=== PATIENT | male | born 1940 | race Caucasian/White ===

== ENCOUNTER 2017-07-18 12:38 | Inpatient (IN) | payer MEDICARE, MEDICAID ==
[2017-07-18] MEDS ORDERED: Sodium Chloride 0.9% 10 ML Syringe FLUSH PRN (12:54)
[2017-07-18] MEDS ORDERED: Sodium Chloride 0.9% 2.5 ML Syringe FLUSH PRN (12:54)
[2017-07-18] MEDS ORDERED: Sodium Chloride 0.9% 1,000 ML IV ONE (13:06)
[2017-07-18] MEDS ORDERED: Acetaminophen 500 MG Tab PO ONE (13:06)
[2017-07-18] MEDS ORDERED: Albuterol/Ipratropium 3.0-0.5 MG/3 ML Neb Soln NEB ONE (13:11)
--- NOTE | 2017-07-18 13:11 | EDM.PDOC ---
ED HPI GENERAL MEDICAL PROBLEM - General Chief Complaint: Respiratory Problem Stated Complaint: POSSIBLE PNEUMONIA Time Seen by Provider: 07/18/17 12:50 - History of Present Illness INITIAL COMMENTS - FREE TEXT/NARRATIVE: HISTORY AND PHYSICAL: History of present illness: The patient is a 77-year-old male who lives at a assisted and has a history of scoliosis hypertension chronic blepharitis dermatitis and presents with caregiver after he had decrease activity for shortness of breath and coughing while he was at work today. According to the caregiver he has had a harsh cough for the last several days and they did not document a fever and he has not had vomiting or diarrhea. He has had a runny nose but he has not complained of chest pain or shortness of breath. Today they bring him because he seemed to have a lower level of activity than usual and the nurse at the assisted assessed him and thought that he sounded like he might have pneumonia and he is here for evaluation. The patient offers little history here and seems more sleepy than the caregiver says is usual for him but she says he does sleep a lot in general. His initial O2 sat on arrival was 86-88% on room air and his temp was 102.1. He has not received any medication for this temperature as the assisted was unaware of it. He denies any abdominal pain and he says that occasionally when he coughs there will be some phlegm but not a large amount of it. He denies any other complaints to me on my evaluation. The patient did get his influenza shot this year. According to the report he does not have any pulmonary disease history Review of systems: As per history of present illness and below otherwise all systems reviewed and negative. Past medical history: As per history of present illness and as reviewed below otherwise noncontributory. Surgical history: As per history of present illness and as reviewed below otherwise noncontributory. Social history: No reported history of drug or alcohol abuse. Family history: As per history of present illness and as reviewed below otherwise noncontributory. Physical exam: General: Well-developed well-nourished man who is nontoxic and is arousable and interactive with my exam and is able to perform commands but is very quiet and prefers to keep his eyes closed in between evaluation. His temp is 102.1 and his O2 sat on room air was 86-88%. On oxygen he comes up to the low 90s. HEENT: Atraumatic, normocephalic, pupils reactive, negative for conjunctival pallor or scleral icterus, mucous membranes moist, throat clear, neck supple, nontender, trachea midline. Lungs: Coarse breath sounds bilaterally with occasional wheeze more at the right base, there is no accessory muscle use or work of breathing noted, breath sounds equal bilaterally, chest nontender. Patient does has a harsh cough which was heard by us in the ED Heart: S1S2, regular, negative for clicks, rubs, or JVD. Abdomen: Soft, nondistended, nontender. There is no rebound or guarding but there is some tympany on percussion of the upper abdomen Negative for masses or hepatosplenomegaly. Negative for costovertebral tenderness. Pelvis: Stable nontender. Genitourinary: Deferred. Rectal: Deferred. Extremities: Atraumatic, negative for cords or calf pain. Neurovascular unremarkable. No leg asymmetry or pedal edema Neuro: Awake, alert, oriented. Cranial nerves II through XII unremarkable. Cerebellum unremarkable. Motor and sensory unremarkable throughout. Exam nonfocal. Diagnostics: EKG chest x-ray CBC CMP influenza lactic acid UA urine culture blood cultures 2 Therapeutics: IV O2 monitor IV fluids duo neb Tylenol Tamiflu Rocephin Patient is going to x-ray and is much more awake and looking around and interactive. We'll continue to monitor her status and his testing results 1427--case was discussed with our hospitalist Dr. Arias who wants Tamiflu and Rocephin to be given an inpatient admission. At this point the patient has not given a urine sample so will have to be collected from the floor. Impression: Influenza A + with hypoxia and bibasilar infiltrates versus atelectasis Definitive disposition and diagnosis as appropriate pending reevaluation and review of above. - Related Data Allergies Allergy/AdvReac Type Severity Reaction Status Date / Time carbamazepine [From Tegretol] Allergy Rash Verified 07/18/17 13:01 ED ROS GENERAL - Review of Systems Review Of Systems: ROS reveals no pertinent complaints other than HPI. ED EXAM, GENERAL - Physical Exam Exam: See Below (See dictation) Course - Vital Signs Last Recorded V/S: Last Vital Signs Temp 38.2 C H 07/18/17 14:11 Pulse 95 07/18/17 14:11 Resp 22 H 07/18/17 14:11 BP 148/76 H 07/18/17 14:11 Pulse Ox 95 07/18/17 14:11 - Orders/Labs/Meds Orders: Active Orders 24 hr Category Date Time Status Cardiac Monitoring [RC] . DIRECTED Care 07/18/17 12:54 Active EKG Documentation Completion [RC] STAT Care 07/18/17 12:54 Active Oxygen Therapy, ED [RC] ASDIRECTED Care 07/18/17 12:54 Active Pulse Oximetry [RC] ASDIRECTED Care 07/18/17 12:54 Active RT Aerosol Therapy [RC] ASDIRECTED Care 07/18/17 13:11 Active CULTURE BLOOD [BC] Stat Lab 07/18/17 13:17 Received CULTURE BLOOD [BC] Stat Lab 07/18/17 13:45 Received CULTURE URINE [RM] Stat Lab 07/18/17 13:07 Uncollected UA W/MICROSCOPIC [URIN] Stat Lab 07/18/17 13:07 Uncollected Oseltamivir [Tamiflu] Med 07/18/17 14:28 Once 75 mg PO ONETIME ONE Sodium Chloride 0.9% [Saline Flush] Med 07/18/17 12:54 Active 10 ml FLUSH ASDIRECTED PRN Sodium Chloride 0.9% [Saline Flush] Med 07/18/17 12:54 Active 2.5 ml FLUSH ASDIRECTED PRN cefTRIAXone [Rocephin in Dextrose,Iso-Osm 1 GM/50 ML] 1 Med 07/18/17 14:28 Ordered gm Premix Bag 1 bag IV ONETIME Blood Culture x2 Reflex Set [OM.PC] Stat Oth 07/18/17 13:07 Ordered Saline Lock Insert [OM.PC] Stat Oth 07/18/17 12:54 Ordered Medication Orders Sodium Chloride (Saline Flush) 10 ml FLUSH ASDIRECTED PRN PRN Reason: Keep Vein Open Last Admin: 07/18/17 14:10 Dose: 10 ml Sodium Chloride (Saline Flush) 2.5 ml FLUSH ASDIRECTED PRN PRN Reason: Keep Vein Open Last Admin: 07/18/17 14:10 Dose: 2.5 ml Labs: Laboratory Tests 07/18/17 07/18/17 07/18/17 Range/Units 13:17 13:17 13:17 WBC 10.05 (4.0-11.0) K/uL RBC 4.85 (4.50-5.90) M/uL Hgb 14.8 (13.0-17.0) g/dL Hct 43.5 (38.0-50.0) % MCV 89.7 (80.0-98.0) fL MCH 30.5 (27.0-32.0) pg MCHC 34.0 (31.0-37.0) g/dL RDW Std Deviation 43.3 (28.0-62.0) fl RDW Coeff of Kimberly 13 (11.0-15.0) % Plt Count 205 (150-400) K/uL MPV 9.60 (7.40-12.00) fL Neut % (Auto) 86.1 H (48.0-80.0) % Lymph % (Auto) 5.8 L (16.0-40.0) % [place] % (Auto) 8.0 (0.0-15.0) % Eos % (Auto) 0.0 (0.0-7.0) % Baso % (Auto) 0.1 (0.0-1.5) % Neut # (Auto) 8.7 H (1.4-5.7) K/uL Lymph # (Auto) 0.6 (0.6-2.4) K/uL [place] # (Auto) 0.8 (0.0-0.8) K/uL Eos # (Auto) 0.0 (0.0-0.7) K/uL Baso # (Auto) 0.0 (0.0-0.1) K/uL Nucleated RBC % 0.0 /100WBC Nucleated RBCs # 0 K/uL Lactate 2.7 H (0.20-2.00) mmol/L Sodium 138 (136-146) mmol/L Potassium 3.3 L (3.5-5.1) mmol/L Chloride 100 (98-110) mmol/L Carbon Dioxide 25 (21-31) mmol/L BUN 25 H (6.0-23.0) mg/dL Creatinine 1.0 (0.6-1.5) mg/dL Est Cr Clr Drug Dosing 59.67 mL/min Estimated GFR (MDRD) > 60.0 ml/min Glucose 262 H (60-110) mg/dL Calcium 9.1 (8.8-10.8) mg/dL Total Bilirubin 2.8 H (0.1-1.5) mg/dL AST 48 H (5-40) IU/L ALT 31 (8-54) IU/L Alkaline Phosphatase 71 (40-150) Total Protein 7.2 (6.0-8.0) g/dL Albumin 4.1 (3.4-4.8) g/dL Globulin 3.1 (2.0-3.5) g/dL Albumin/Globulin Ratio 1.3 (1.3-2.8) Meds: Medications Generic Name Dose Route Start Last Admin Trade Name Freq PRN Reason Stop Dose Admin Sodium Chloride 10 ml 07/18/17 12:54 07/18/17 14:10 Saline Flush FLUSH 10 ml ASDIRECTED PRN Administration Keep Vein Open Sodium Chloride 2.5 ml 07/18/17 12:54 07/18/17 14:10 Saline Flush FLUSH 2.5 ml ASDIRECTED PRN Administration Keep Vein Open Discontinued Medications Generic Name Dose Route Start Last Admin Trade Name Freq PRN Reason Stop Dose Admin Acetaminophen 1,000 mg 07/18/17 13:06 07/18/17 13:24 Tylenol Extra Strength PO 07/18/17 13:07 1,000 mg ONETIME ONE Administration Albuterol/Ipratropium 3 ml 07/18/17 13:11 07/18/17 13:28 Duoneb 3.0-0.5 Mg/3 Ml NEB 07/18/17 13:12 3 ml ONETIME ONE Administration Sodium Chloride 1,000 mls @ 999 mls/hr 07/18/17 13:06 07/18/17 14:06 Normal Saline IV 07/18/17 14:06 999 mls/hr STAT ONE Administration Departure - Departure Time of Disposition: 14:30 Disposition: Admitted As Inpatient 68 Condition: Good Clinical Impression: Influenza A, Hypoxia Pneumonia Qualifiers: Pneumonia type: due to unspecified organism Laterality: bilateral Lung location : lower lobe of lung Qualified Code(s): J18.9 - Pneumonia, unspecified organism - Discharge Information Referrals: Chai Villalta MD [Primary Care Provider] - Forms: ED Department Discharge - My Orders Last 24 Hours: My Active Orders 07/18/17 12:54 Cardiac Monitoring [RC] . DIRECTED EKG Documentation Completion [RC] STAT Oxygen Therapy, ED [RC] ASDIRECTED Pulse Oximetry [RC] ASDIRECTED Sodium Chloride 0.9% [Saline Flush] 10 ml FLUSH ASDIRECTED PRN Sodium Chloride 0.9% [Saline Flush] 2.5 ml FLUSH ASDIRECTED PRN Saline Lock Insert [OM.PC] Stat 07/18/17 13:07 CULTURE URINE [RM] Stat UA W/MICROSCOPIC [URIN] Stat Blood Culture x2 Reflex Set [OM.PC] Stat 07/18/17 13:11 RT Aerosol Therapy [RC] ASDIRECTED 07/18/17 13:17 CULTURE BLOOD [BC] Stat 07/18/17 13:45 CULTURE BLOOD [BC] Stat 07/18/17 14:28 Oseltamivir [Tamiflu] 75 mg PO ONETIME ONE cefTRIAXone [Rocephin in Dextrose,Iso-Osm 1 GM/50 ML] 1 gm Premix Bag 1 bag IV ONETIME - Assessment/Plan Last 24 Hours: My Active Orders 07/18/17 12:54 Cardiac Monitoring [RC] . DIRECTED EKG Documentation Completion [RC] STAT Oxygen Therapy, ED [RC] ASDIRECTED Pulse Oximetry [RC] ASDIRECTED Sodium Chloride 0.9% [Saline Flush] 10 ml FLUSH ASDIRECTED PRN Sodium Chloride 0.9% [Saline Flush] 2.5 ml FLUSH ASDIRECTED PRN Saline Lock Insert [OM.PC] Stat 07/18/17 13:07 CULTURE URINE [RM] Stat UA W/MICROSCOPIC [URIN] Stat Blood Culture x2 Reflex Set [OM.PC] Stat 07/18/17 13:11 RT Aerosol Therapy [RC] ASDIRECTED 07/18/17 13:17 CULTURE BLOOD [BC] Stat 07/18/17 13:45 CULTURE BLOOD [BC] Stat 07/18/17 14:28 Oseltamivir [Tamiflu] 75 mg PO ONETIME ONE cefTRIAXone [Rocephin in Dextrose,Iso-Osm 1 GM/50 ML] 1 gm Premix Bag 1 bag IV ONETIME
[2017-07-18 13:53] LABS: CHLORIDE,CL 100 mmol/L (98-110); SODIUM,NA 138 mmol/L (136-146)
--- NOTE | 2017-07-18 14:22 | CR ---
EXAMINATION: Two-view chest (PA and Lateral views). HISTORY: Shortness of breath. FINDINGS: The trachea is midline. The cardiomediastinal silhouette is within normal limits. Mild bibasilar atel ectasis and/or infiltrate. No pleural effusion or pneumothorax. Osseous structures appear unremarkable. IMPRESSION: 1. Mild bibasilar atelectasis and/or infiltrates, accentuated by low lung volumes.
[2017-07-18] MEDS ORDERED: Oseltamivir 75 MG Cap PO ONE (14:28)
[2017-07-18] MEDS ORDERED: cefTRIAXone 1 GM in Premix Bag 1 BAG IV ONE (14:28)
[2017-07-18] MEDS ORDERED: ALPRAZolam 0.5 MG Tab PO ONE (14:47)
[2017-07-18] MEDS ORDERED: Albuterol 0.083% 2.5 MG/3 ML Neb Soln NEB PRN (15:23)
[2017-07-18] MEDS ORDERED: Acetaminophen 325 MG Tab PO PRN (15:23)
[2017-07-18] MEDS ORDERED: Ondansetron 4 MG/2 ML SDV IVPUSH PRN (15:23)
--- NOTE | 2017-07-18 15:28 | PCM.HP ---
H&P History of Present Illness - General Date of Service: 07/18/17 Admit Problem/Dx: Admission Diagnosis/Problem Admission Diagnosis/Problem Hypoxia, CAP, Influenza A positive Source of Information: Family, Other (Detention records) History Limitations: Reports: No Limitations - History of Present Illness Initial Comments - Free Text/Narative: This 77 year old male with pmh of HTN and who lives in a senior care presented to the ED with his caregiver after they noticed today he wsa more sleepy and not acting himself. No fever was noted at home, but a nurse at the senior care did listen to his lungs and felt he should be evaluated for possible pneumonia. The caregiver with him no reports he was barely able to get out of the car, which is not normal for him. He is usually very talkative and active. She denies him being sick even yesterday, or that they didn't notice anything different until today. Timothy is resting in bed, mumbles when attempting to talk, so unable to obtain ROS or HPI. I did speak with Timothy's Guardian and POA his brother Dr Dick Busby. He reports he would like to be updated daily on his condition. He also reports Timothy is a FULL CODE. In the ED, No leukocytosis noted. WBC 10,000, lactate was elevate 2.7, K+ 3.3, BUN 25, Cr 1.0 Bili 2.8, AST 48 ALT 31 Alk phose 71. He was noted to be hypoxic on arrival to ED, 86% on RA. He was placed on 3 L NC, sating 95%. HR 70-90s, No hypotension. Febrile with temps of 102 on arrival to ED. CXR revealed bibasilar infiltrates. He was swabbed for influenza, which return positive for Influenza A. EKG SR with LAD. NO ST segment changes. He will be admitted for sepsis, hypoxia, CAP and influenza A. PCP, Dr Chai Villalta - Related Data Allergies/Adverse Reactions: Allergies Allergy/AdvReac Type Severity Reaction Status Date / Time carbamazepine [From Tegretol] Allergy Rash Verified 07/18/17 13:01 Home Medications: Home Meds ALPRAZolam [Xanax] 0.5 mg PO TID 07/18/17 [History] Cetirizine [ZyrTEC] 10 mg PO DAILY 07/18/17 [History] Doxazosin [Cardura] 4 mg PO BEDTIME 07/18/17 [History] Triamterene/Hydrochlorothiazid [Dyazide 37.5-25] 1 tab PO DAILY 07/18/17 [ History] Past Medical History Cardiovascular History: Reports: Hypertension. Denies: Heart Failure Respiratory History: Reports: None. Denies: COPD Musculoskeletal History: Reports: Other (See Below) Other Musculoskeletal History: shoulder dislocation Psychiatric History: Reports: Developmental Delay - Infectious Disease History Other Infectious Disease History: unknown Social & Family History - Family History Family Medical History: Noncontributory - Tobacco Use Smoking Status *Q: Never Smoker - Recreational Drug Use Recreational Drug Use: No - Living Situation & Occupation Living situation: Reports: Other (Detention) H&P Review of Systems - Review of Systems: Review Of Systems: Unable To Obtain Exam - Exam Exam: See Below - Vital Signs Vital Signs: Last Vital Signs Temp 101.2 F H 07/18/17 14:51 Pulse 79 07/18/17 14:51 Resp 18 07/18/17 14:51 BP 129/76 07/18/17 14:51 Pulse Ox 95 07/18/17 14:51 Weight: 104.326 kg - Exam Quality Assessment: Supplemental Oxygen General: Alert, Cooperative, Obtunded, Other (flushed in the cheeks, mumbles when trying to speak, but cooperative, easily falls back to sleep). No: Oriented HEENT: Conjunctiva Clear, Mucosa Moist & [place], Pupils Reactive Neck: Supple Lungs: Crackles (bibasilar.). No: Wheezing Cardiovascular: Regular Rate, Regular Rhythm, Normal S1, Normal S2 GI/Abdominal Exam: Normal Bowel Sounds, Soft, Non-Tender, No Organomegaly, No Distention, No Abnormal Bruit, No Mass, Pelvis Stable Back Exam: Normal Inspection, Full Range of Motion, NT Extremities: Normal Inspection, Normal Range of Motion, Non-Tender, No Pedal Edema, Normal Capillary Refill Neuro Extensive - Mental Status: Alert. No: Oriented x3, Normal Mood/Affect, Normal Cognition Psychiatric: Alert - Patient Data Result Diagrams: 07/18/17 13:17 07/18/17 13:17 EKG INTERPRETATION EKG Date: 07/18/17 Rhythm: NSR Rate (Beats/Min): 93 [place]: LAD-Left [place] Deviation P-Wave: Present QRS: Normal ST-T: Normal QT: Normal *Q Meaningful Use (ADM) - VTE *Q VTE Criteria *Q: - Stroke *Q Stroke Criteria *Q: - AMI *Q AMI Criteria *Q: - Problem List (1) Sepsis SNOMED Code(s): 64475848 ICD Code: A41.9 - SEPSIS, UNSPECIFIED ORGANISM Status: Acute Current Visit: Yes (2) Hypoxia SNOMED Code(s): 024599986 ICD Code: R09.02 - HYPOXEMIA Status: Acute Current Visit: Yes (3) Influenza A SNOMED Code(s): 500470738 ICD Code: J10.1 - FLU DUE TO OTH IDENT INFLUENZA VIRUS W OTH RESP MANIFEST Status: Acute Current Visit: Yes (4) Pneumonia SNOMED Code(s): 598764725 ICD Code: J18.9 - PNEUMONIA, UNSPECIFIED ORGANISM Status: Acute Current Visit: Yes Qualifiers: Pneumonia type: due to unspecified organism Laterality: bilateral Lung location: lower lobe of lung Qualified Code(s): J18.9 - Pneumonia, unspecified organism (5) HTN (hypertension) SNOMED Code(s): 09889028 ICD Code: I10 - ESSENTIAL (PRIMARY) HYPERTENSION Status: Chronic Current Visit: Yes Qualifiers: Hypertension type: essential hypertension Qualified Code(s): I10 - Essential (primary) hypertension (6) Developmental delay, moderate SNOMED Code(s): 208478885 ICD Code: R62.50 - UNSP LACK OF EXPECTED NORMAL PHYSIOL DEV IN CHILDHOOD Status: Chronic Current Visit: Yes Problem List Initiated/Reviewed/Updated: Yes Orders Last 24hrs: Active Orders 24 hr Category Date Time Status Communication Order [RC] PRN Care 07/18/17 15:27 Ordered Height and Weight [RC] DAILY Care 07/18/17 15:23 Ordered Intake and Output [RC] QSHIFT Care 07/18/17 15:23 Ordered Oxygen Therapy [RC] PRN Care 07/18/17 15:23 Ordered RT Aerosol Therapy [RC] ASDIRECTED Care 07/18/17 15:26 Ordered Up With Assistance [RC] ASDIRECTED Care 07/18/17 15:23 Ordered VTE/DVT Education [RC] PER UNIT ROUTINE Care 07/18/17 15:23 Ordered Vital Signs [RC] Q4H Care 07/18/17 15:23 Ordered Heart Healthy Diet [DIET] Diet 07/18/17 Dinner Ordered CBC WITH AUTO DIFF [HEME] AM Lab 07/19/17 05:11 Ordered CBC WITH AUTO DIFF [HEME] AM Lab 07/20/17 05:11 Ordered CBC WITH AUTO DIFF [HEME] AM Lab 07/21/17 05:11 Ordered COMPREHENSIVE METABOLIC PN,CMP [CHEM] AM Lab 07/19/17 05:11 Ordered COMPREHENSIVE METABOLIC PN,CMP [CHEM] AM Lab 07/20/17 05:11 Ordered COMPREHENSIVE METABOLIC PN,CMP [CHEM] AM Lab 07/21/17 05:11 Ordered CULTURE SPUTUM + SMEAR [RM] Stat Lab 07/18/17 15:23 Uncollected LACTIC ACID,WHOLE BLOOD [BG] Q5H Lab 07/18/17 17:15 Ordered LACTIC ACID,WHOLE BLOOD [BG] Q5H Lab 07/18/17 22:15 Ordered LACTIC ACID,WHOLE BLOOD [BG] Q5H Lab 07/19/17 03:15 Ordered UA W/MICROSCOPIC [URIN] Stat Lab 07/18/17 15:23 Uncollected Acetaminophen [Tylenol] Med 07/18/17 15:23 Ordered 650 mg PO Q4H PRN Albuterol [Proventil Neb Soln] Med 07/18/17 15:23 Ordered 2.5 mg NEB Q2H PRN Albuterol/Ipratropium [DuoNeb 3.0-0.5 MG/3 ML] Med 07/18/17 18:00 Ordered 3 ml NEB Q4HRRT Azithromycin [Zithromax] Med 07/18/17 15:30 Ordered 500 mg PO Q24H Enoxaparin [Lovenox] Med 07/18/17 15:30 Ordered 30 mg SUBCUT DAILY Ondansetron [Zofran] Med 07/18/17 15:23 Ordered 4 mg IVPUSH Q4H PRN Oseltamivir [Tamiflu] Med 07/18/17 21:00 Ordered 75 mg PO BID Sodium Chloride 0.9% @ 125 MLS/HR (1,000ml) Med 07/18/17 15:30 Ordered Sodium Chloride 0.9% [Normal Saline] 1,000 ml IV ASDIRECTED cefTRIAXone [Rocephin in Dextrose,Iso-Osm 1 GM/50 ML] 1 Med 07/19/17 14:00 Ordered gm Premix Bag 1 bag IV Q24H Medication Orders Acetaminophen (Tylenol) 650 mg PO Q4H PRN PRN Reason: Pain (Mild 1-3)/fever Albuterol (Proventil Neb Soln) 2.5 mg NEB Q2H PRN PRN Reason: Shortness Of Breath/wheezing Azithromycin (Zithromax) 500 mg PO Q24H AURELIA Ceftriaxone Sodium/Dextrose 1 (gm/ Premix) 50 mls @ 100 mls/hr IV Q24H AURELIA Sodium Chloride (Normal Saline) 1,000 mls @ 125 mls/hr IV ASDIRECTED AURELIA Oseltamivir Phosphate (Tamiflu) 75 mg PO BID AURELIA Sodium Chloride (Saline Flush) 10 ml FLUSH ASDIRECTED PRN PRN Reason: Keep Vein Open Last Admin: 07/18/17 14:10 Dose: 10 ml Sodium Chloride (Saline Flush) 2.5 ml FLUSH ASDIRECTED PRN PRN Reason: Keep Vein Open Last Admin: 07/18/17 14:10 Dose: 2.5 ml Assessment/Plan Comment:: This 77 year old male admitted with sepsis secondary to Influenza A and bibasilar pneumonia, and hypoxia 1. Sepsis: Given 1 L bolus in ED, will continue to monitor Lactate until normalized. HR decreased to 70s from 90s after bolus. BC pending as well as UA and sputum. Repeat CBC/CMP in am. Tylenol available for fevers PRN. 2. Pneumonia: CAP, treated with Azithromycin and Rocephin. BC pending, will attempt to obtain sputum culture. 3. Influenza A positive: Received vaccine this year. No sick contacts. Tamiflu 75 mg BID. 4. Hypoxia: Likely secondary to pneumonia and influenza, Oxygen therapy to keep sats > 90%. Wean as possible. 5. HTN: Stable. Hold antihypertensives acutely due to illness and sepsis. 6. Agitation/developmental delay: Takes Xanax scheduled TID, will changed to PRN due to some AMS from acute illness. Monitor. VTE prophylaxis: Lovenox
[2017-07-18] MEDS ORDERED: ALPRAZolam 0.5 MG Tab PO PRN (15:49)
[2017-07-18] MEDS: Azithromycin 250 MG Tab PO SCH (16:09)
[2017-07-18] MEDS: Enoxaparin 30 MG/0.3 ML Syringe SUBCUT SCH (16:14)
[2017-07-18] MEDS: Sodium Chloride 0.9% 1,000 ML IV SCH (16:32)
[2017-07-18] MEDS: Albuterol/Ipratropium 3.0-0.5 MG/3 ML Neb Soln NEB SCH ×2 (17:36→22:08)
[2017-07-18] MEDS: Oseltamivir 75 MG Cap PO SCH (22:08)
[2017-07-19] MEDS: Sodium Chloride 0.9% 1,000 ML IV SCH (00:38)
[2017-07-19] MEDS: Albuterol/Ipratropium 3.0-0.5 MG/3 ML Neb Soln NEB SCH ×6 (02:47→22:11)
[2017-07-19 05:57] LABS: CHLORIDE,CL 104 mmol/L (98-110); SODIUM,NA 140 mmol/L (136-146)
[2017-07-19] MEDS: Potassium Chloride 20 MEQ Tab.ER PO SCH ×2 (08:17→14:33)
[2017-07-19] MEDS: Cetirizine 10 MG Tab PO SCH (08:17)
[2017-07-19] MEDS: Oseltamivir 75 MG Cap PO SCH ×2 (08:17→22:11)
--- NOTE | 2017-07-19 10:08 | PCM.PN ---
- General Info Date of Service: 07/19/17 Admission Dx/Problem (Free Text): Admission Diagnosis/Problem Admission Diagnosis/Problem Hypoxia, CAP, Influenza A positive Subjective Update: More alert this morning, sitting up in the chair, eating breakfast. Speaking more clearly today. Able to answer yes and no. Denies pain or shortness of breath. But says yes he doesn't feel well. - Review of Systems General: Reports: Malaise Pulmonary: Reports: No Symptoms. Denies: Shortness of Breath Cardiovascular: Reports: No Symptoms. Denies: Chest Pain Gastrointestinal: Denies: Abdominal Pain, Nausea, Vomiting Neurological: Reports: No Symptoms. Denies: Confusion Psychiatric: Reports: No Symptoms. Denies: Confusion - Patient Data Vitals - Most Recent: Last Vital Signs Temp 98.5 F 07/19/17 08:00 Pulse 70 07/19/17 08:00 Resp 20 07/19/17 08:00 BP 129/85 07/19/17 08:00 Pulse Ox 91 L 07/19/17 08:00 Weight - Most Recent: 104.326 kg I&O - Last 24 Hours: Intake & Output 07/18/17 07/19/17 07/19/17 22:59 06:59 14:59 Intake Total 1590 505 Output Total 620 Balance 970 505 Lab Results Last 24 Hours: Laboratory Results - last 24 hr 07/18/17 07/18/17 07/19/17 Range/Units 15:40 17:50 05:04 WBC 7.83 (4.0-11.0) K/uL RBC 4.14 L (4.50-5.90) M/uL Hgb 12.6 L (13.0-17.0) g/dL Hct 37.2 L (38.0-50.0) % MCV 89.9 (80.0-98.0) fL MCH 30.4 (27.0-32.0) pg MCHC 33.9 (31.0-37.0) g/dL RDW Std Deviation 43.9 (28.0-62.0) fl RDW Coeff of Kimberly 13 (11.0-15.0) % Plt Count 192 (150-400) K/uL MPV 9.60 (7.40-12.00) fL Neut % (Auto) 83.8 H (48.0-80.0) % Lymph % (Auto) 8.3 L (16.0-40.0) % Hunt % (Auto) 7.8 (0.0-15.0) % Eos % (Auto) 0.0 (0.0-7.0) % Baso % (Auto) 0.1 (0.0-1.5) % Neut # (Auto) 6.6 H (1.4-5.7) K/uL Lymph # (Auto) 0.7 (0.6-2.4) K/uL Hunt # (Auto) 0.6 (0.0-0.8) K/uL Eos # (Auto) 0.0 (0.0-0.7) K/uL Baso # (Auto) 0.0 (0.0-0.1) K/uL Nucleated RBC % 0.0 /100WBC Nucleated RBCs # 0 K/uL Lactate 1.3 (0.20-2.00) mmol/L Sodium (136-146) mmol/L Potassium (3.5-5.1) mmol/L Chloride (98-110) mmol/L Carbon Dioxide (21-31) mmol/L BUN (6.0-23.0) mg/dL Creatinine (0.6-1.5) mg/dL Est Cr Clr Drug Dosing mL/min Estimated GFR (MDRD) ml/min Glucose (60-110) mg/dL Calcium (8.8-10.8) mg/dL Total Bilirubin (0.1-1.5) mg/dL AST (5-40) IU/L ALT (8-54) IU/L Alkaline Phosphatase (40-150) Total Protein (6.0-8.0) g/dL Albumin (3.4-4.8) g/dL Globulin (2.0-3.5) g/dL Albumin/Globulin Ratio (1.3-2.8) Urine Color YELLOW Urine Appearance SLT CLOUDY Urine pH 6.0 (5.0-8.0) Ur Specific [place] 1.025 (1.001-1.035) Urine Protein 30 (NEGATIVE) mg/dL Urine Glucose (UA) 100 H (NEGATIVE) mg/dL Urine Ketones NEGATIVE (NEGATIVE) mg/dL Urine Occult Blood SMALL H (NEGATIVE) Urine Nitrite NEGATIVE (NEGATIVE) Urine Bilirubin NEGATIVE (NEGATIVE) Urine Urobilinogen 1.0 (<2.0) EU/dL Ur Leukocyte Esterase NEGATIVE (NEGATIVE) Urine RBC 0-2 (0-2/HPF) Urine WBC 0-2 (0-5/HPF) Ur Epithelial Cells RARE (NONE-FEW) Amorphous Sediment LIGHT (NEGATIVE) Urine Bacteria FEW (NEGATIVE) 07/19/17 Range/Units 05:04 WBC (4.0-11.0) K/uL RBC (4.50-5.90) M/uL Hgb (13.0-17.0) g/dL Hct (38.0-50.0) % MCV (80.0-98.0) fL MCH (27.0-32.0) pg MCHC (31.0-37.0) g/dL RDW Std Deviation (28.0-62.0) fl RDW Coeff of Kimberly (11.0-15.0) % Plt Count (150-400) K/uL MPV (7.40-12.00) fL Neut % (Auto) (48.0-80.0) % Lymph % (Auto) (16.0-40.0) % Hunt % (Auto) (0.0-15.0) % Eos % (Auto) (0.0-7.0) % Baso % (Auto) (0.0-1.5) % Neut # (Auto) (1.4-5.7) K/uL Lymph # (Auto) (0.6-2.4) K/uL Hunt # (Auto) (0.0-0.8) K/uL Eos # (Auto) (0.0-0.7) K/uL Baso # (Auto) (0.0-0.1) K/uL Nucleated RBC % /100WBC Nucleated RBCs # K/uL Lactate (0.20-2.00) mmol/L Sodium 140 (136-146) mmol/L Potassium 2.9 L (3.5-5.1) mmol/L Chloride 104 (98-110) mmol/L Carbon Dioxide 27 (21-31) mmol/L BUN 22 (6.0-23.0) mg/dL Creatinine 0.8 (0.6-1.5) mg/dL Est Cr Clr Drug Dosing 74.59 mL/min Estimated GFR (MDRD) > 60.0 ml/min Glucose 123 H (60-110) mg/dL Calcium 7.8 L (8.8-10.8) mg/dL Total Bilirubin 1.5 (0.1-1.5) mg/dL AST 60 H (5-40) IU/L ALT 28 (8-54) IU/L Alkaline Phosphatase 54 (40-150) Total Protein 5.6 L (6.0-8.0) g/dL Albumin 3.3 L (3.4-4.8) g/dL Globulin 2.3 (2.0-3.5) g/dL Albumin/Globulin Ratio 1.4 (1.3-2.8) Urine Color Urine Appearance Urine pH (5.0-8.0) Ur Specific [place] (1.001-1.035) Urine Protein (NEGATIVE) mg/dL Urine Glucose (UA) (NEGATIVE) mg/dL Urine Ketones (NEGATIVE) mg/dL Urine Occult Blood (NEGATIVE) Urine Nitrite (NEGATIVE) Urine Bilirubin (NEGATIVE) Urine Urobilinogen (<2.0) EU/dL Ur Leukocyte Esterase (NEGATIVE) Urine RBC (0-2/HPF) Urine WBC (0-5/HPF) Ur Epithelial Cells (NONE-FEW) Amorphous Sediment (NEGATIVE) Urine Bacteria (NEGATIVE) Med Orders - Current: Current Medications Acetaminophen (Tylenol) 650 mg PO Q4H PRN PRN Reason: Pain (Mild 1-3)/fever Last Admin: 07/19/17 01:05 Dose: 650 mg Albuterol (Proventil Neb Soln) 2.5 mg NEB Q2HR PRN PRN Reason: Shortness Of Breath/wheezing Last Admin: 07/19/17 00:39 Dose: 2.5 mg Albuterol/Ipratropium (Duoneb 3.0-0.5 Mg/3 Ml) 3 ml NEB Q4HRRT [facility] Last Admin: 07/19/17 09:39 Dose: 3 ml Alprazolam (Xanax) 0.5 mg PO Q8H PRN PRN Reason: agitation,anxiety Azithromycin (Zithromax) 500 mg PO Q24H [facility] Last Admin: 07/18/17 16:09 Dose: 500 mg Cetirizine HCl (Zyrtec) 10 mg PO DAILY [facility] Last Admin: 07/19/17 08:17 Dose: 10 mg Enoxaparin Sodium (Lovenox) 30 mg SUBCUT Q24H [facility] Last Admin: 07/18/17 16:14 Dose: 30 mg Ceftriaxone Sodium/Dextrose 1 (gm/ Premix) 50 mls @ 100 mls/hr IV Q24H [facility] Ondansetron HCl (Zofran) 4 mg IVPUSH Q4H PRN PRN Reason: Nausea Oseltamivir Phosphate (Tamiflu) 75 mg PO BID [facility] Last Admin: 07/19/17 08:17 Dose: 75 mg Potassium Chloride (Klor-Con M20) 40 meq PO BID@0800,1400 [facility] Stop: 07/19/17 14:01 Last Admin: 07/19/17 08:17 Dose: 40 meq Sodium Chloride (Saline Flush) 10 ml FLUSH ASDIRECTED PRN PRN Reason: Keep Vein Open Last Admin: 07/18/17 14:10 Dose: 10 ml Sodium Chloride (Saline Flush) 2.5 ml FLUSH ASDIRECTED PRN PRN Reason: Keep Vein Open Last Admin: 07/18/17 14:10 Dose: 2.5 ml Discontinued Medications Acetaminophen (Tylenol Extra Strength) 1,000 mg PO ONETIME ONE Stop: 07/18/17 13:07 Last Admin: 07/18/17 13:24 Dose: 1,000 mg Albuterol/Ipratropium (Duoneb 3.0-0.5 Mg/3 Ml) 3 ml NEB ONETIME ONE Stop: 07/18/17 13:12 Last Admin: 07/18/17 13:28 Dose: 3 ml Alprazolam (Xanax) 0.5 mg PO NOW ONE Stop: 07/18/17 14:48 Last Admin: 07/18/17 14:54 Dose: 0.5 mg Sodium Chloride (Normal Saline) 1,000 mls @ 999 mls/hr IV STAT ONE Stop: 07/18/17 14:06 Last Infusion: 07/18/17 14:48 Dose: 200 mls/hr Ceftriaxone Sodium/Dextrose 1 (gm/ Premix) 50 mls @ 100 mls/hr IV ONETIME ONE Stop: 07/18/17 14:57 Last Admin: 07/18/17 14:45 Dose: 100 mls/hr Sodium Chloride (Normal Saline) 1,000 mls @ 125 mls/hr IV ASDIRECTED AURELIA Last Admin: 07/19/17 00:38 Dose: 125 mls/hr Oseltamivir Phosphate (Tamiflu) 75 mg PO ONETIME ONE Stop: 07/18/17 14:29 Last Admin: 07/18/17 14:44 Dose: 75 mg - Exam General: Alert, Oriented (to baseline), Cooperative, No Acute Distress HEENT: Pupils Equal, Other (sinus congestion heard with breathing.) Neck: Supple Lungs: Normal Respiratory Effort, Rhonchi (bilateral bases. ). No: Wheezing Cardiovascular: Regular Rate, Regular Rhythm GI/Abdominal Exam: Normal Bowel Sounds, Soft, Non-Tender, No Organomegaly, No Distention, No Abnormal Bruit, No Mass, Pelvis Stable Back Exam: Normal Inspection, Full Range of Motion Extremities: Normal Inspection, Normal Range of Motion, Non-Tender, No Pedal Edema, Normal Capillary Refill Neurological: No New Focal Deficit Psy/Mental Status: Alert, Normal Affect, Normal Mood - Problem List & Annotations (1) Sepsis SNOMED Code(s): 23626208 Code(s): A41.9 - SEPSIS, UNSPECIFIED ORGANISM Status: Acute Current Visit : Yes (2) Hypoxia SNOMED Code(s): 045404649 Code(s): R09.02 - HYPOXEMIA Status: Acute Current Visit: Yes (3) Influenza A SNOMED Code(s): 797583490 Code(s): J10.1 - FLU DUE TO OTH IDENT INFLUENZA VIRUS W OTH RESP MANIFEST Status: Acute Current Visit: Yes (4) Pneumonia SNOMED Code(s): 958906805 Code(s): J18.9 - PNEUMONIA, UNSPECIFIED ORGANISM Status: Acute Current Visit: Yes Qualifiers: Pneumonia type: due to unspecified organism Laterality: bilateral Lung location: lower lobe of lung Qualified Code(s): J18.9 - Pneumonia, unspecified organism (5) HTN (hypertension) SNOMED Code(s): 71269545 Code(s): I10 - ESSENTIAL (PRIMARY) HYPERTENSION Status: Chronic Current Visit: Yes Qualifiers: Hypertension type: essential hypertension Qualified Code(s): I10 - Essential (primary) hypertension (6) Developmental delay, moderate SNOMED Code(s): 644816180 Code(s): R62.50 - UNSP LACK OF EXPECTED NORMAL PHYSIOL DEV IN CHILDHOOD Status: Chronic Current Visit: Yes - Problem List Review Problem List Initiated/Reviewed/Updated: Yes - My Orders Last 24 Hours: My Active Orders 07/18/17 15:23 Height and Weight [RC] DAILY Intake and Output [RC] Q12H Oxygen Therapy [RC] PRN Up With Assistance [RC] ASDIRECTED VTE/DVT Education [RC] PER UNIT ROUTINE Vital Signs [RC] Q4H CULTURE SPUTUM + SMEAR [RM] Stat Acetaminophen [Tylenol] 650 mg PO Q4H PRN Albuterol [Proventil Neb Soln] 2.5 mg NEB Q2HR PRN Ondansetron [Zofran] 4 mg IVPUSH Q4H PRN 07/18/17 15:26 RT Aerosol Therapy [RC] ASDIRECTED 07/18/17 15:27 Communication Order [RC] PRN 07/18/17 15:30 Azithromycin [Zithromax] 500 mg PO Q24H Enoxaparin [Lovenox] 30 mg SUBCUT Q24H 07/18/17 15:45 Resuscitation Status Routine 07/18/17 15:49 ALPRAZolam [Xanax] 0.5 mg PO Q8H PRN 07/18/17 18:00 Albuterol/Ipratropium [DuoNeb 3.0-0.5 MG/3 ML] 3 ml NEB Q4HRRT 07/18/17 21:00 Oseltamivir [Tamiflu] 75 mg PO BID 07/18/17 Dinner Heart Healthy Diet [DIET] 07/19/17 08:00 Potassium Chloride [Klor-Con M20] 40 meq PO BID@0800,1400 07/19/17 09:00 Cetirizine [ZyrTEC] 10 mg PO DAILY 07/19/17 14:00 cefTRIAXone [Rocephin in Dextrose,Iso-Osm 1 GM/50 ML] 1 gm Premix Bag 1 bag IV Q24H 07/20/17 05:11 CBC WITH AUTO DIFF [HEME] AM COMPREHENSIVE METABOLIC PN,CMP [CHEM] AM 07/21/17 05:11 CBC WITH AUTO DIFF [HEME] AM COMPREHENSIVE METABOLIC PN,CMP [CHEM] AM - Plan Plan:: This 77 year old male admitted with sepsis secondary to Influenza A and bibasilar pneumonia, and hypoxia 1. Sepsis: Resolved. Lactate normalized. BC pending. UA negative. Sputum unable to be obtained yet. Tmax 100.4 F last evening. Tylenol available for fevers PRN. 2. CA Pneumonia: Improving. Continue with Azithromycin and Rocephin. BC pending , will attempt to obtain sputum culture. 3. Influenza A positive: Improving. More alert today. Continue Tamiflu 75 mg BID. 4. Hypoxia: Weaned off oxygen this morning. Will monitor. Oxygen therapy to keep sats > 90%. Wean as possible. 5. HTN: Stable. Hold antihypertensives acutely due to illness and sepsis. 6. Agitation/developmental delay: Takes Xanax scheduled TID, will changed to PRN for now. Monitor. VTE prophylaxis: Lovenox Dispo: Possible DC in am. I spoke with brother and RUSTY Jennings this morning and updated him on condition, treatment plan and disposition. Dr Dick Busby [phone] or [phone]
[2017-07-19] MEDS ORDERED: cefTRIAXone 1 GM in Premix Bag 1 BAG IV SCH (14:00)
[2017-07-19] MEDS: Azithromycin 250 MG Tab PO SCH (14:33)
[2017-07-19] MEDS: Enoxaparin 30 MG/0.3 ML Syringe SUBCUT SCH (14:43)
[2017-07-19 15:30] LABS: CHLORIDE,CL 102 mmol/L (98-110); SODIUM,NA 139 mmol/L (136-146)
[2017-07-19] MEDS ORDERED: Magnesium Sulfate/Water 2 GM in Premix Bag 1 BAG IV ONE (15:47)
[2017-07-19] MEDS ORDERED: Magnesium Sulfate/Water 50 ML ONE ×2 (15:56→16:01)
[2017-07-20] MEDS: Albuterol/Ipratropium 3.0-0.5 MG/3 ML Neb Soln NEB SCH ×3 (03:06→11:10)
[2017-07-20 06:07] LABS: CHLORIDE,CL 105 mmol/L (98-110); SODIUM,NA 140 mmol/L (136-146)
[2017-07-20] MEDS ORDERED: Potassium Chloride 20 MEQ Tab.ER PO ONE (08:04)
[2017-07-20] MEDS: Cetirizine 10 MG Tab PO SCH (08:34)
[2017-07-20] MEDS: Oseltamivir 75 MG Cap PO SCH (08:34)
--- NOTE | 2017-07-20 09:09 | PCM.DCSUM1 ---
Discharge Summary - Hospital Course Brief History: This 77 year old male with pmh of HTN and who lives in a shelter presented to the ED with his caregiver after they noticed he was more sleepy and not acting himself. No fever was noted at home, but a nurse at the shelter did listen to his lungs and felt he should be evaluated for possible pneumonia. The caregiver with him no reports he was barely able to get out of the car, which is not normal for him. He is usually very talkative and active. She denies him being sick even yesterday, or that they didn't notice anything different until today. Timothy is resting in bed, mumbles when attempting to talk, so unable to obtain ROS or HPI. I did speak with Timothy's Guardian and POA his brother Dr Haard Qi. He reports he would like to be updated daily on his condition. He also reports Timothy is a FULL CODE. In the ED, No leukocytosis noted. WBC 10,000, lactate was elevate 2.7, K+ 3.3, BUN 25, Cr 1.0 Bili 2.8, AST 48 ALT 31 Alk phose 71. He was noted to be hypoxic on arrival to ED, 86% on RA. He was placed on 3 L NC, sating 95%. HR 70-90s, No hypotension. Febrile with temps of 102 on arrival to ED. CXR revealed bibasilar infiltrates. He was swabbed for influenza, which return positive for Influenza A. EKG SR with LAD. NO ST segment changes. He will be admitted for sepsis, hypoxia, CAP and influenza A. PCP, Dr Chai Villalta - Discharge Data Discharge Date: 07/20/17 Discharge Disposition: DC/Tfer to [facility] Condition: Good - Discharge Diagnosis/Problem(s) (1) Sepsis SNOMED Code(s): 17519320 ICD Code: A41.9 - SEPSIS, UNSPECIFIED ORGANISM Status: Acute (2) Hypoxia SNOMED Code(s): 919380223 ICD Code: R09.02 - HYPOXEMIA Status: Acute (3) Influenza A SNOMED Code(s): 349534510 ICD Code: J10.1 - FLU DUE TO OTH IDENT INFLUENZA VIRUS W OTH RESP MANIFEST Status: Acute (4) Pneumonia SNOMED Code(s): 211712755 ICD Code: J18.9 - PNEUMONIA, UNSPECIFIED ORGANISM Status: Acute Qualifiers: Pneumonia type: due to unspecified organism Laterality: bilateral Lung location: lower lobe of lung Qualified Code(s): J18.9 - Pneumonia, unspecified organism (5) HTN (hypertension) SNOMED Code(s): 60113580 ICD Code: I10 - ESSENTIAL (PRIMARY) HYPERTENSION Status: Chronic Qualifiers: Hypertension type: essential hypertension Qualified Code(s): I10 - Essential (primary) hypertension (6) Developmental delay, moderate SNOMED Code(s): 010069869 ICD Code: R62.50 - UNSP LACK OF EXPECTED NORMAL PHYSIOL DEV IN CHILDHOOD Status: Chronic - Patient Instructions Diet: Heart Healthy Diet, Usual Diet as Tolerated Activity: As Tolerated Showering/Bathing: May Shower Notify Provider of: Fever, Increased Pain, Swelling and Redness, Drainage, Nausea and/or Vomiting - Discharge Plan Prescriptions/Med Rec: Albuterol/Ipratropium [DuoNeb 3.0-0.5 MG/3 ML] 3 ml NEB Q4HRRT PRN #1 box PRN Reason: SOB/wheezing Azithromycin [Zithromax] 500 mg PO Q24H #5 tablet Oseltamivir Phosphate [IJD: Tamiflu] 75 mg PO BID #14 capsule Home Medications: Home Meds ALPRAZolam [Xanax] 0.5 mg PO TID 07/18/17 [History] Cetirizine [ZyrTEC] 10 mg PO DAILY 07/18/17 [History] Doxazosin [Cardura] 4 mg PO BEDTIME 07/18/17 [History] Triamterene/Hydrochlorothiazid [Dyazide 37.5-25] 1 tab PO DAILY 07/18/17 [ History] Albuterol/Ipratropium [DuoNeb 3.0-0.5 MG/3 ML] 3 ml NEB Q4HRRT PRN #1 box [Rx] Azithromycin [Zithromax] 500 mg PO Q24H #5 tablet 07/20/17 [Rx] Oseltamivir Phosphate [IJD: Tamiflu] 75 mg PO BID #14 capsule 07/20/17 [Rx] Patient Handouts: Influenza, Adult, [id number], Oseltamivir capsules, Azithromycin tablets, Albuterol; Ipratropium solution for inhalation, Community- Acquired Pneumonia, Adult, [id number] Referrals: Chai Villalta MD [Primary Care Provider] - 07/27/17 10:15 am - Discharge Summary/Plan Comment DC Time >30 min.: No Discharge Summary/Plan Comment: Discharge Diagnoses: Influenza A positive Bibasilar CAP Development delay HTN Timothy was admitted and initially treated for suspected sepsis with AMS. He was noted to be influenza A positive and to have bibasilar pneumnia. He was treated with IVF hydration, Tamiflu and Rocephin and Azithromycin. He improved very nicely and was much more alert the follow day. He was kept overnight a second night due to BC not being available yet. They returned with no growth. he was weaned off oxygen and today was very alert and back to his normal self. Some non productive cough continued. No fevers. He will be treate with Azithromycin for another 5 days and tamiflu for another 7 days. He was also given a nebulizer order, due to so lingering wheezing, which cleared with cough and nebs. Inhaler maybe hard for him to manipulate and use correctly. He is to return to clinic or ED if concerns should arise. Follow up appointment will be arranged with Dr Villalta in 1 week. I spoke with Dick OJEDA, his brother, who is aware of discharge home today and treatment plan. - General Info Date of Service: 07/20/17 Admission Dx/Problem (Free Text: Admission Diagnosis/Problem Admission Diagnosis/Problem Hypoxia, CAP, Influenza A positive Subjective Update: Mumbling when talked to. Says no to pain. - Patient Data Vitals - Most Recent: Last Vital Signs Temp 98.9 F 07/20/17 04:00 Pulse 89 07/20/17 04:00 Resp 18 07/20/17 04:00 BP 142/88 H 07/20/17 04:00 Pulse Ox 96 07/20/17 04:00 Weight - Most Recent: 90.5 kg I&O - Last 24 hours: Intake & Output 07/19/17 07/20/17 07/20/17 22:59 06:59 14:59 Intake Total 980 420 Output Total 550 Balance 430 420 Lab Results - Last 24 hrs: Laboratory Results - last 24 hr 07/19/17 07/19/17 07/20/17 Range/Units 05:04 15:00 04:47 WBC 4.20 (4.0-11.0) K/uL RBC 4.32 L (4.50-5.90) M/uL Hgb 12.9 L (13.0-17.0) g/dL Hct 38.8 (38.0-50.0) % MCV 89.8 (80.0-98.0) fL MCH 29.9 (27.0-32.0) pg MCHC 33.2 (31.0-37.0) g/dL RDW Std Deviation 43.4 (28.0-62.0) fl RDW Coeff of Kimberly 13 (11.0-15.0) % Plt Count 210 (150-400) K/uL MPV 9.50 (7.40-12.00) fL Neut % (Auto) 61.7 (48.0-80.0) % Lymph % (Auto) 27.4 (16.0-40.0) % [place] % (Auto) 10.2 (0.0-15.0) % Eos % (Auto) 0.5 (0.0-7.0) % Baso % (Auto) 0.2 (0.0-1.5) % Neut # (Auto) 2.6 (1.4-5.7) K/uL Lymph # (Auto) 1.2 (0.6-2.4) K/uL [place] # (Auto) 0.4 (0.0-0.8) K/uL Eos # (Auto) 0.0 (0.0-0.7) K/uL Baso # (Auto) 0.0 (0.0-0.1) K/uL Nucleated RBC % 0.0 /100WBC Nucleated RBCs # 0 K/uL Sodium 139 (136-146) mmol/L Potassium 3.4 L (3.5-5.1) mmol/L Chloride 102 (98-110) mmol/L Carbon Dioxide 27 (21-31) mmol/L BUN 19 (6.0-23.0) mg/dL Creatinine 0.8 (0.6-1.5) mg/dL Est Cr Clr Drug Dosing 74.59 mL/min Estimated GFR (MDRD) > 60.0 ml/min Glucose 120 H (60-110) mg/dL Calcium 8.4 L (8.8-10.8) mg/dL Magnesium 1.4 L (1.5-2.3) mEq/L Total Bilirubin (0.1-1.5) mg/dL AST (5-40) IU/L ALT (8-54) IU/L Alkaline Phosphatase (40-150) Total Protein (6.0-8.0) g/dL Albumin (3.4-4.8) g/dL Globulin (2.0-3.5) g/dL Albumin/Globulin Ratio (1.3-2.8) 07/20/17 Range/Units 04:47 WBC (4.0-11.0) K/uL RBC (4.50-5.90) M/uL Hgb (13.0-17.0) g/dL Hct (38.0-50.0) % MCV (80.0-98.0) fL MCH (27.0-32.0) pg MCHC (31.0-37.0) g/dL RDW Std Deviation (28.0-62.0) fl RDW Coeff of Kimberly (11.0-15.0) % Plt Count (150-400) K/uL MPV (7.40-12.00) fL Neut % (Auto) (48.0-80.0) % Lymph % (Auto) (16.0-40.0) % [place] % (Auto) (0.0-15.0) % Eos % (Auto) (0.0-7.0) % Baso % (Auto) (0.0-1.5) % Neut # (Auto) (1.4-5.7) K/uL Lymph # (Auto) (0.6-2.4) K/uL [place] # (Auto) (0.0-0.8) K/uL Eos # (Auto) (0.0-0.7) K/uL Baso # (Auto) (0.0-0.1) K/uL Nucleated RBC % /100WBC Nucleated RBCs # K/uL Sodium 140 (136-146) mmol/L Potassium 3.3 L (3.5-5.1) mmol/L Chloride 105 (98-110) mmol/L Carbon Dioxide 26 (21-31) mmol/L BUN 19 (6.0-23.0) mg/dL Creatinine 0.7 (0.6-1.5) mg/dL Est Cr Clr Drug Dosing 85.25 mL/min Estimated GFR (MDRD) > 60.0 ml/min Glucose 100 (60-110) mg/dL Calcium 8.1 L (8.8-10.8) mg/dL Magnesium 1.6 (1.5-2.3) mEq/L Total Bilirubin 1.3 (0.1-1.5) mg/dL AST 66 H (5-40) IU/L ALT 31 (8-54) IU/L Alkaline Phosphatase 51 (40-150) Total Protein 5.5 L (6.0-8.0) g/dL Albumin 3.4 (3.4-4.8) g/dL Globulin 2.1 (2.0-3.5) g/dL Albumin/Globulin Ratio 1.6 (1.3-2.8) Med Orders - Current: Current Medications Acetaminophen (Tylenol) 650 mg PO Q4H PRN PRN Reason: Pain (Mild 1-3)/fever Last Admin: 07/19/17 01:05 Dose: 650 mg Albuterol (Proventil Neb Soln) 2.5 mg NEB Q2HR PRN PRN Reason: Shortness Of Breath/wheezing Last Admin: 07/19/17 00:39 Dose: 2.5 mg Albuterol/Ipratropium (Duoneb 3.0-0.5 Mg/3 Ml) 3 ml NEB Q4HRRT COUNT INCLUDES THE [facility] Last Admin: 07/20/17 06:03 Dose: 3 ml Alprazolam (Xanax) 0.5 mg PO Q8H PRN PRN Reason: agitation,anxiety Last Admin: 07/20/17 08:34 Dose: 0.5 mg Azithromycin (Zithromax) 500 mg PO Q24H COUNT INCLUDES THE [facility] Last Admin: 07/19/17 14:33 Dose: 500 mg Cetirizine HCl (Zyrtec) 10 mg PO DAILY COUNT INCLUDES THE [facility] Last Admin: 07/20/17 08:34 Dose: 10 mg Enoxaparin Sodium (Lovenox) 40 mg SUBCUT Q24H COUNT INCLUDES THE [facility] Ceftriaxone Sodium/Dextrose 1 (gm/ Premix) 50 mls @ 100 mls/hr IV Q24H COUNT INCLUDES THE [facility] Last Admin: 07/19/17 14:36 Dose: 100 mls/hr Ondansetron HCl (Zofran) 4 mg IVPUSH Q4H PRN PRN Reason: Nausea Oseltamivir Phosphate (Tamiflu) 75 mg PO BID COUNT INCLUDES THE [facility] Last Admin: 07/20/17 08:34 Dose: 75 mg Sodium Chloride (Saline Flush) 10 ml FLUSH ASDIRECTED PRN PRN Reason: Keep Vein Open Last Admin: 07/18/17 14:10 Dose: 10 ml Sodium Chloride (Saline Flush) 2.5 ml FLUSH ASDIRECTED PRN PRN Reason: Keep Vein Open Last Admin: 07/18/17 14:10 Dose: 2.5 ml Discontinued Medications Acetaminophen (Tylenol Extra Strength) 1,000 mg PO ONETIME ONE Stop: 07/18/17 13:07 Last Admin: 07/18/17 13:24 Dose: 1,000 mg Albuterol/Ipratropium (Duoneb 3.0-0.5 Mg/3 Ml) 3 ml NEB ONETIME ONE Stop: 07/18/17 13:12 Last Admin: 07/18/17 13:28 Dose: 3 ml Alprazolam (Xanax) 0.5 mg PO NOW ONE Stop: 07/18/17 14:48 Last Admin: 07/18/17 14:54 Dose: 0.5 mg Enoxaparin Sodium (Lovenox) 30 mg SUBCUT Q24H COUNT INCLUDES THE [facility] Last Admin: 07/19/17 14:43 Dose: 30 mg Sodium Chloride (Normal Saline) 1,000 mls @ 999 mls/hr IV STAT ONE Stop: 07/18/17 14:06 Last Infusion: 07/18/17 14:48 Dose: 200 mls/hr Ceftriaxone Sodium/Dextrose 1 (gm/ Premix) 50 mls @ 100 mls/hr IV ONETIME ONE Stop: 07/18/17 14:57 Last Admin: 07/18/17 14:45 Dose: 100 mls/hr Sodium Chloride (Normal Saline) 1,000 mls @ 125 mls/hr IV ASDIRECTED COUNT INCLUDES THE [facility] Last Admin: 07/19/17 00:38 Dose: 125 mls/hr Magnesium Sulfate 2 gm/ Premix 50 mls @ 50 mls/hr IV ONETIME ONE Stop: 07/19/17 16:46 Last Admin: 07/19/17 16:05 Dose: 50 mls/hr Magnesium Sulfate (Magnesium Sulfate 2 Gm In Water 50 Ml) Confirm Administered Dose 50 mls @ as directed .ROUTE .STK-MED ONE Stop: 07/19/17 15:57 Last Admin: 07/19/17 16:10 Dose: Not Given Magnesium Sulfate (Magnesium Sulfate 2 Gm In Water 50 Ml) Confirm Administered Dose 50 mls @ as directed .ROUTE .STK-MED ONE Stop: 07/19/17 16:02 Last Admin: 07/19/17 16:11 Dose: Not Given Oseltamivir Phosphate (Tamiflu) 75 mg PO ONETIME ONE Stop: 07/18/17 14:29 Last Admin: 07/18/17 14:44 Dose: 75 mg Potassium Chloride (Klor-Con M20) 40 meq PO BID@0800,1400 AURELIA Stop: 07/19/17 14:01 Last Admin: 07/19/17 14:33 Dose: 40 meq Potassium Chloride (Klor-Con M20) 40 meq PO ONETIME ONE Stop: 07/20/17 08:05 Last Admin: 07/20/17 08:34 Dose: 40 meq - Exam General: Reports: Alert, Cooperative, No Acute Distress HEENT: Reports: Pupils Equal, Pupils Reactive, EOMI, Mucous Membr. Moist/[place] Lungs: Reports: Normal Respiratory Effort, Wheezing (scant to bases), Other ( cough, non productive) Cardiovascular: Reports: Regular Rate, Regular Rhythm, No Murmurs Back Exam: Reports: Normal Inspection, Full Range of Motion Extremities: Normal Inspection, Normal Range of Motion, Non-Tender, No Pedal Edema, Normal Capillary Refill Skin: Reports: Warm, Dry, Intact Neurological: Reports: No New Focal Deficit Psy/Mental Status: Reports: Alert, Normal Affect, Normal Mood *Q Meaningful Use (DIS) - VTE *Q VTE Criteria *Q: - Stroke *Q Stroke Criteria *Q: - AMI *Q AMI Criteria *Q:
[2017-07-20] MEDS ORDERED: Enoxaparin 40 MG/0.4 ML Syringe SUBCUT SCH (16:00)
== END 2017-07-20 11:00 | DRG 871 ==
LOC: MW.ED 12:38 → MW.MS 14:37 → MW.ED 15:00
PROVIDERS: ADMIT Internal Medicine; ATTEND Internal Medicine
DX: J09.X2 Influenza due to identified novel influenza A virus with other respiratory manifestations (principal); A41.9 Sepsis, unspecified organism; I10 Essential (primary) hypertension; J18.9 Pneumonia, unspecified organism; J10.1 Influenza due to other identified influenza virus with other respiratory manifestations; R09.02 Hypoxemia; R62.50 Unspecified lack of expected normal physiological development in childhood; R41.82 Altered mental status, unspecified; Z88.8 Allergy status to other drugs, medicaments and biological substances; Z79.899 Other long term (current) drug therapy
CPT/HCPCS: 36415; 71046; 80053; 83605; 85025; 87040 ×2; 87804 ×2; 93005; 94640; 96361; 99285; A9270; J7040; 80048; 81001; 83735; 96374; J0696; J1650; J3475

== ENCOUNTER 2018-04-02 18:23 | Emergency (ER) | payer MEDICARE, MEDICAID ==
--- NOTE | 2018-04-02 18:44 | EDM.PDOC ---
ED HPI GENERAL MEDICAL PROBLEM - General Chief Complaint: Head Injury Stated Complaint: FELL AND HIT HIS HEAD Time Seen by Provider: 04/02/18 18:44 Source of Information: Reports: Patient History Limitations: Reports: No Limitations - History of Present Illness INITIAL COMMENTS - FREE TEXT/NARRATIVE: HISTORY AND PHYSICAL: History of present illness: Patient is a 78-year-old male resident of [facility] here with his reimbursement director for head injury. Her daycare states that he was sitting in a bar stool when he shifted in his seat and then fell backwards and hit his head. He denies any loss of consciousness. He is otherwise in her usual states of health , denies any chest pain, SOB, abdominal pain, nausea, vomiting, diarrhea. Review of systems: As per history of present illness and below otherwise all systems reviewed and negative. Past medical history: As per history of present illness and as reviewed below otherwise noncontributory. Surgical history: As per history of present illness and as reviewed below otherwise noncontributory. Social history: No reported history of drug or alcohol abuse. Family history: As per history of present illness and as reviewed below otherwise noncontributory. Physical exam: General: Patient sitting comfortably in no acute distress and nontoxic appearing HEENT: Atraumatic, normocephalic, pupils reactive, negative for conjunctival pallor or scleral icterus, mucous membranes moist, throat clear, neck supple, nontender, trachea midline. No meningeal signs. Lungs: Clear to auscultation, breath sounds equal bilaterally, chest nontender. Heart: S1S2, regular, negative for clicks, rubs, or overt murmur. Abdomen: Soft, nondistended, nontender. Negative for masses or hepatosplenomegaly. Negative for costovertebral tenderness. Pelvis: Stable nontender. Genitourinary: Deferred. Rectal: Deferred. Extremities: Atraumatic, negative for cords or calf pain. Neurovascular unremarkable. Neuro: Awake, alert, oriented. Cranial nerves II through XII unremarkable. Cerebellum unremarkable. Motor and sensory unremarkable throughout. Exam nonfocal. Notes: Diagnostics: Head CT Therapeutics: None Prescriptions: None Impression: Head injury Plan: 1. Follow up with primary care provider 2. Return to ED as needed as discussed Definitive disposition and diagnosis as appropriate pending reevaluation and review of above. - Related Data Allergies Allergy/AdvReac Type Severity Reaction Status Date / Time carbamazepine [From Tegretol] Allergy Rash Verified 04/02/18 18:35 Home Meds: Home Meds ALPRAZolam [Xanax] 0.5 mg PO TID 07/18/17 [History] Cetirizine [ZyrTEC] 10 mg PO DAILY 07/18/17 [History] Doxazosin [Cardura] 4 mg PO BEDTIME 07/18/17 [History] Triamterene/Hydrochlorothiazid [Dyazide 37.5-25] 1 tab PO DAILY 07/18/17 [ History] Past Medical History - Past Health History Medical/Surgical History: Denies Medical/Surgical History Cardiovascular History: Reports: Hypertension Respiratory History: Reports: None Musculoskeletal History: Reports: Other (See Below) Other Musculoskeletal History: shoulder dislocation Psychiatric History: Reports: Developmental Delay Dermatologic History: Reports: Other (See Below) Other Dermatologic History: Dermatitis - Infectious Disease History Infectious Disease History: Reports: None Other Infectious Disease History: unknown Social & Family History - Family History Family Medical History: Noncontributory - Tobacco Use Smoking Status *Q: Never Smoker - Caffeine Use Caffeine Use: Reports: Coffee - Recreational Drug Use Recreational Drug Use: No - Living Situation & Occupation Living situation: Reports: Other (Detention) ED ROS GENERAL - Review of Systems Review Of Systems: ROS reveals no pertinent complaints other than HPI. ED EXAM, HEAD INJURY - Physical Exam Exam: See Below (see dictation) Course - Vital Signs Last Recorded V/S: Last Vital Signs Temp 37.0 C 04/02/18 18:36 Pulse 84 04/02/18 18:36 Resp 18 04/02/18 18:36 BP 147/94 H 04/02/18 18:36 Pulse Ox 93 L 04/02/18 18:36 - Orders/Labs/Meds Orders: Active Orders 24 hr Category Date Time Status Head wo Cont [CT] Stat Exams 04/02/18 18:48 Taken Departure - Departure Time of Disposition: 19:23 Disposition: Home, Self-Care 01 Condition: Good Clinical Impression: Head injury - Discharge Information Referrals: PCP,None [Primary Care Provider] - Forms: ED Department Discharge Additional Instructions: The following information is given to patients seen in the emergency department who are being discharged to home. This information is to outline your options for follow-up care. We provide all patients seen in our emergency department with a follow-up referral. The need for follow-up, as well as the timing and circumstances, are variable depending upon the specifics of your emergency department visit. If you don't have a primary care physician on staff, we will provide you with a referral. We always advise you to contact your personal physician following an emergency department visit to inform them of the circumstance of the visit and for follow-up with them and/or the need for any referrals to a consulting specialist. The emergency department will also refer you to a specialist when appropriate. This referral assures that you have the opportunity for follow-up care with a specialist. All of these measure are taken in an effort to provide you with optimal care, which includes your follow-up. Under all circumstances we always encourage you to contact your private physician who remains a resource for coordinating your care. When calling for follow-up care, please make the office aware that this follow-up is from your recent emergency room visit. If for any reason you are refused follow-up, please contact the [facility] Emergency Department at and asked to speak to the emergency department charge nurse. [address] [address] 1. Follow up with primary care provider 2. Return to ED as needed as discussed - My Orders Last 24 Hours: My Active Orders 04/02/18 18:48 Head wo Cont [CT] Stat - Assessment/Plan Last 24 Hours: My Active Orders 04/02/18 18:48 Head wo Cont [CT] Stat
--- NOTE | 2018-04-03 09:19 | CT ---
EXAM DATE: 04/02/18 PATIENT'S AGE: 78 Patient: JEWELL VILLELA Facility: [place], [place] Site . Site : [id number] Study: CT Head [id number]/[id number] 7:09:04 PM Ordering Physician: Doctor Chamberlain Final Report: INDICATION: Fell off bar stool. TECHNIQUE: CT head without IV contrast. FINDINGS: Minimal mucosal thickening in the right sphenoid sinus. No acute intracranial hemorrhage, edema, or mass effect. Mild cerebral atrophy. Mild to moderate dilatation of the 3rd ventricle. New mild to moderate dense calcification along the falx. Remainder negative. 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 Please note that all CT scans at this facility use dose modulation, iterative reconstruction, and/or weight-based dosing when appropriate to reduce radiation dose to as low as reasonably achievable. Dictated by Eitan Garcia MD @ Apr 02 2018 7:11PM (Electronic Signature) Report Signed by Proxy. MTDD
== END 2018-04-02 19:38 | disposition home or self-care (01) ==
LOC: MW.ED 18:23
DX: S09.90XA Unspecified injury of head, initial encounter (principal); I10 Essential (primary) hypertension; Z79.899 Other long term (current) drug therapy; Z88.8 Allergy status to other drugs, medicaments and biological substances; W19.XXXA Unspecified fall, initial encounter
CPT/HCPCS: 70450; 70450-26; 99283-25

== ENCOUNTER 2020-06-03 08:38 | Emergency (ER) | payer MEDICARE, MEDICAID ==
--- NOTE | 2020-06-03 08:52 | EDM.PDOC ---
ED HPI GENERAL MEDICAL PROBLEM - General Chief Complaint: Respiratory Problem Stated Complaint: SOB CHEST PAIN Time Seen by Provider: 06/03/20 08:47 Source of Information: Reports: Patient - History of Present Illness INITIAL COMMENTS - FREE TEXT/NARRATIVE: Patient is a 80-year-old male who presents today for shortness of breath and cough. Patient caregiver states that since yesterday patient's been coughing feel more short of breath patient ambulated to the bathroom was very short of breath after the ambulation. Patient otherwise had no fever nausea vomiting but has had decreased p.o. intake. Patient mental status is at his baseline patient does not speak clearly at baseline patient has some developmental delays. Onset: Today - Related Data Allergies Allergy/AdvReac Type Severity Reaction Status Date / Time carbamazepine [From Tegretol] Allergy Rash Verified 06/03/20 09:02 Home Meds: Home Meds ALPRAZolam [Xanax] 0.5 mg PO TID 07/18/17 [History] Doxazosin [Cardura] 4 mg PO BEDTIME 07/18/17 [History] Triamterene/Hydrochlorothiazid [Dyazide 37.5-25] 1 tab PO DAILY 07/18/17 [History] Multivitamin [Multivitamins] 1 cap PO DAILY 07/19/18 [History] Past Medical History - Past Health History Medical/Surgical History: Denies Medical/Surgical History HEENT History: Reports: Other (See Below) Other HEENT History: myopia Cardiovascular History: Reports: Hypertension Respiratory History: Reports: None Musculoskeletal History: Reports: Other (See Below) Other Musculoskeletal History: shoulder dislocation. scoliosis Psychiatric History: Reports: Developmental Delay Dermatologic History: Reports: Other (See Below) Other Dermatologic History: Dermatitis - Infectious Disease History Infectious Disease History: Reports: None Other Infectious Disease History: unknown Social & Family History - Family History Family Medical History: No Pertinent Family History - Caffeine Use Caffeine Use: Reports: Coffee - Living Situation & Occupation Living situation: Reports: Other ([facility]) ED ROS GENERAL - Review of Systems Review Of Systems: See Below (mental status) ED EXAM, GENERAL - Physical Exam Exam: See Below Exam Limited By: Other General Appearance: Alert, No Apparent Distress Eye Exam: Bilateral Eye: EOMI Head: Atraumatic Respiratory/Chest: Lungs Clear, Normal Breath Sounds, Chest Non-Tender Cardiovascular: Regular Rate, Rhythm GI/Abdominal: Normal Bowel Sounds, Soft, Non-Tender Extremities: Normal Range of Motion Neurological: Alert (at baseline ), CN II-XII Intact #1 Interpretation EKG Date: 06/03/20 Time: 08:45 Rhythm: NSR Rate (Beats/Min): 92 ST-T: Normal Course - Vital Signs Last Recorded V/S: Last Vital Signs Temp 99.9 F 06/03/20 08:49 Pulse 79 06/03/20 13:42 Resp 18 06/03/20 13:42 BP 107/68 06/03/20 15:39 Pulse Ox 92 L 06/03/20 13:42 - Orders/Labs/Meds Orders: Active Orders 24 hr Category Date Time Status CULTURE BLOOD [BC] Stat Lab 06/03/20 08:50 Received CULTURE BLOOD [BC] Stat Lab 06/03/20 09:10 Received UA W/KALLIE RFLX IF INDICATED [URIN] Stat Lab 06/03/20 08:49 Ordered Blood Culture x2 Reflex Set [OM.PC] Stat Oth 06/03/20 08:49 Ordered Isolation [COMM] Routine Oth 06/03/20 08:49 Active Labs: Laboratory Tests 06/03/20 06/03/20 06/03/20 Range/Units 08:50 08:50 08:50 WBC 16.43 H (4.0-11.0) K/uL RBC 4.59 (4.50-5.90) M/uL Hgb 13.8 (13.0-17.0) g/dL Hct 40.9 (38.0-50.0) % MCV 89.1 (80.0-98.0) fL MCH 30.1 (27.0-32.0) pg MCHC 33.7 (31.0-37.0) g/dL RDW Std Deviation 40.9 (28.0-62.0) fl RDW Coeff of Kimberly 13 (11.0-15.0) % Plt Count 368 (150-400) K/uL MPV 9.50 (7.40-12.00) fL Neut % (Auto) 88.5 H (48.0-80.0) % Lymph % (Auto) 5.5 L (16.0-40.0) % [place] % (Auto) 5.9 (0.0-15.0) % Eos % (Auto) 0.0 (0.0-7.0) % Baso % (Auto) 0.1 (0.0-1.5) % Neut # (Auto) 14.5 H (1.4-5.7) K/uL Lymph # (Auto) 0.9 (0.6-2.4) K/uL [place] # (Auto) 1.0 H (0.0-0.8) K/uL Eos # (Auto) 0.0 (0.0-0.7) K/uL Baso # (Auto) 0.0 (0.0-0.1) K/uL Nucleated RBC % 0.0 /100WBC Nucleated RBCs # 0 K/uL Lactate 2.1 H* (0.20-2.00) mmol/L Sodium 133 L (136-148) mmol/L Potassium 2.9 L (3.5-5.1) mmol/L Chloride 94 L (98-107) mmol/L Carbon Dioxide 31.4 (21.0-32.0) mmol/L BUN 19 H (7.0-18.0) mg/dL Creatinine 1.1 (0.8-1.3) mg/dL Est Cr Clr Drug Dosing 39.14 mL/min Estimated GFR (MDRD) > 60.0 ml/min Glucose 168 H (74-106) mg/dL Calcium 8.6 (8.5-10.1) mg/dL Total Bilirubin 2.1 H (0.2-1.0) mg/dL AST 21 (15-37) IU/L ALT 18 (14-63) IU/L Alkaline Phosphatase 85 (46-116) U/L Total Protein 7.0 (6.4-8.2) g/dL Albumin 2.8 L (3.4-5.0) g/dL Globulin 4.2 H (2.6-4.0) g/dL Albumin/Globulin Ratio 0.7 L (0.9-1.6) SARS-CoV-2 RNA (ARSENIO) (NEGATIVE) 06/03/20 06/03/20 Range/Units 13:33 14:13 WBC (4.0-11.0) K/uL RBC (4.50-5.90) M/uL Hgb (13.0-17.0) g/dL Hct (38.0-50.0) % MCV (80.0-98.0) fL MCH (27.0-32.0) pg MCHC (31.0-37.0) g/dL RDW Std Deviation (28.0-62.0) fl RDW Coeff of Kimberly (11.0-15.0) % Plt Count (150-400) K/uL MPV (7.40-12.00) fL Neut % (Auto) (48.0-80.0) % Lymph % (Auto) (16.0-40.0) % [place] % (Auto) (0.0-15.0) % Eos % (Auto) (0.0-7.0) % Baso % (Auto) (0.0-1.5) % Neut # (Auto) (1.4-5.7) K/uL Lymph # (Auto) (0.6-2.4) K/uL [place] # (Auto) (0.0-0.8) K/uL Eos # (Auto) (0.0-0.7) K/uL Baso # (Auto) (0.0-0.1) K/uL Nucleated RBC % /100WBC Nucleated RBCs # K/uL Lactate 0.9 (0.20-2.00) mmol/L Sodium (136-148) mmol/L Potassium (3.5-5.1) mmol/L Chloride (98-107) mmol/L Carbon Dioxide (21.0-32.0) mmol/L BUN (7.0-18.0) mg/dL Creatinine (0.8-1.3) mg/dL Est Cr Clr Drug Dosing mL/min Estimated GFR (MDRD) ml/min Glucose (74-106) mg/dL Calcium (8.5-10.1) mg/dL Total Bilirubin (0.2-1.0) mg/dL AST (15-37) IU/L ALT (14-63) IU/L Alkaline Phosphatase (46-116) U/L Total Protein (6.4-8.2) g/dL Albumin (3.4-5.0) g/dL Globulin (2.6-4.0) g/dL Albumin/Globulin Ratio (0.9-1.6) SARS-CoV-2 RNA (ARSENIO) NEGATIVE (NEGATIVE) Meds: Medications Discontinued Medications Generic Name Dose Route Start Last Admin Trade Name Garrett PRN Reason Stop Dose Admin Ceftriaxone Sodium 1 gm 06/03/20 10:01 06/03/20 10:37 Rocephin IVPUSH 06/03/20 10:02 Not Given ONETIME ONE Sodium Chloride 1,000 mls @ 999 mls/hr 06/03/20 09:34 06/03/20 09:45 Normal Saline IV 06/03/20 10:34 999 mls/hr .BOLUS ONE Administration Azithromycin 500 mg/ Sodium 250 mls @ 250 mls/hr 06/03/20 10:15 06/03/20 10:37 Chloride IV 250 mls/hr ONETIME AURELIA Administration Ceftriaxone Sodium/Dextrose 1 50 mls @ 100 mls/hr 06/03/20 10:19 06/03/20 11:43 gm/ Premix IV 06/03/20 10:48 100 mls/hr ONETIME ONE Administration Sodium Chloride 1,000 mls @ 150 mls/hr 06/03/20 12:45 06/03/20 15:38 Normal Saline IV 150 mls/hr ASDIRECTED AURELIA Administration Potassium Chloride 40 meq 06/03/20 14:54 06/03/20 15:38 Potassium Chloride Solution PO 06/03/20 14:55 Not Given ONETIME ONE Potassium Chloride Confirm 06/03/20 15:36 06/03/20 15:38 Potassium Chloride Administered 06/03/20 15:37 40 meq Dose Administration 40 meq .ROUTE .STK-MED ONE Departure - Departure Time of Disposition: 10:20 Disposition: DC/Tfer to Acute Hospital 02 Condition: Good Clinical Impression: Pneumonia Qualifiers: Pneumonia type: due to unspecified organism Laterality: bilateral Lung location: lower lobe of lung Qualified Code(s): J18.9 - Pneumonia, unspecified organism - Discharge Information *PRESCRIPTION DRUG MONITORING PROGRAM REVIEWED*: Not Applicable *COPY OF PRESCRIPTION DRUG MONITORING REPORT IN PATIENT EPI: Not Applicable Instructions: Community-Acquired Pneumonia, Adult Referrals: Chai Villalta MD [Primary Care Provider] - Forms: ED Department Discharge Sepsis Event Note (ED) - Focused Exam Vital Signs: Vital Signs Temp Pulse Resp BP Pulse Ox 06/03/20 15:39 107/68 06/03/20 13:42 79 18 124/76 92 L 06/03/20 12:38 79 18 120/80 92 L 06/03/20 11:00 81 142/80 H 93 L 06/03/20 10:07 76 18 139/82 93 L 06/03/20 09:37 83 18 136/82 93 L 06/03/20 08:49 99.9 F 84 16 128/70 94 L - My Orders Last 24 Hours: My Active Orders 06/03/20 08:49 UA W/KALLIE RFLX IF INDICATED [URIN] Stat Blood Culture x2 Reflex Set [OM.PC] Stat Isolation [COMM] Routine 06/03/20 08:50 CULTURE BLOOD [BC] Stat 06/03/20 09:10 CULTURE BLOOD [BC] Stat - Assessment/Plan Last 24 Hours: My Active Orders 06/03/20 08:49 UA W/KALLIE RFLX IF INDICATED [URIN] Stat Blood Culture x2 Reflex Set [OM.PC] Stat Isolation [COMM] Routine 06/03/20 08:50 CULTURE BLOOD [BC] Stat 06/03/20 09:10 CULTURE BLOOD [BC] Stat Plan: Patient is a 72-year-old male presents today for shortness of breath and cough. Patient has no fever with tympanic temp. Will obtain blood cultures urine labs and x-ray and reassess.
[2020-06-03 09:25] LABS: BLOOD UREA NITROGEN,BUN 19 mg/dL (7.0-18.0); CARBON DIOXIDE,CO2 31.4 mmol/L (21.0-32.0); CHLORIDE,CL 94 mmol/L (98-107); GLUCOSE RANDOM 168 mg/dL (74-106); POTASSIUM,K 2.9 mmol/L (3.5-5.1); SODIUM,NA 133 mmol/L (136-148)
[2020-06-03] MEDS ORDERED: Sodium Chloride 0.9% 1,000 ML IV ONE (09:34)
--- NOTE | 2020-06-03 09:56 | CR ---
INDICATION: Shortness of breath and fever. Cough. TECHNIQUE: Chest 1 views COMPARISON: July 19, 2018. FINDINGS: Cardiovascular and mediastinum: Heart size and vasculature are normal in caliber and appearance. Lungs and pleural spaces: Large ill-defined opacities obscuring the lower left lung. Remainder of the lungs and pleural spaces are clear. Bones and soft tissues: No significant findings. IMPRESSION: Suspected left lower lobe pneumonia with possible parapneumonic effusion. Dictated by Earnest Steel MD @ Jun 03 2020 9:51AM Signed by Dr. Earnest Steel @ Jun 03 2020 9:54AM
[2020-06-03] MEDS ORDERED: cefTRIAXone 1 GM Vial IVPUSH ONE (10:01)
[2020-06-03] MEDS ORDERED: Azithromycin 500 MG in Sodium Chloride 0.9% 250 ML IV SCH (10:15)
[2020-06-03] MEDS ORDERED: cefTRIAXone 1 GM in Premix Bag 1 BAG IV ONE (10:19)
--- NOTE | 2020-06-03 11:44 | PCM.HP.2 ---
H&P History of Present Illness - General Date of Service: 06/03/20 Admit Problem/Dx: Admission Diagnosis/Problem Admission Diagnosis/Problem Pneumonia - Related Data Allergies/Adverse Reactions: Allergies Allergy/AdvReac Type Severity Reaction Status Date / Time carbamazepine [From Tegretol] Allergy Rash Verified 06/03/20 09:02 Home Medications: Home Meds ALPRAZolam [Xanax] 0.5 mg PO TID 07/18/17 [History] Doxazosin [Cardura] 4 mg PO BEDTIME 07/18/17 [History] Triamterene/Hydrochlorothiazid [Dyazide 37.5-25] 1 tab PO DAILY 07/18/17 [History] Multivitamin [Multivitamins] 1 cap PO DAILY 07/19/18 [History] Past Medical History - Past Health History Medical/Surgical History: Denies Medical/Surgical History HEENT History: Reports: Other (See Below) Other HEENT History: myopia Cardiovascular History: Reports: Hypertension Respiratory History: Reports: None Musculoskeletal History: Reports: Other (See Below) Other Musculoskeletal History: shoulder dislocation. scoliosis Psychiatric History: Reports: Developmental Delay Dermatologic History: Reports: Other (See Below) Other Dermatologic History: Dermatitis - Infectious Disease History Infectious Disease History: Reports: None Other Infectious Disease History: unknown Social & Family History - Family History Family Medical History: No Pertinent Family History - Caffeine Use Caffeine Use: Reports: Coffee - Living Situation & Occupation Living situation: Reports: Other ([facility]) Exam - Vital Signs Vital Signs: Last Vital Signs Temp 99.9 F 06/03/20 08:49 Pulse 81 06/03/20 11:00 Resp 18 06/03/20 10:07 BP 142/80 H 06/03/20 11:00 Pulse Ox 93 L 06/03/20 11:00 Weight: 180 lb - Patient Data Lab Results Last 24 hrs: Laboratory Results - last 24 hr 06/03/20 06/03/20 06/03/20 Range/Units 08:50 08:50 08:50 WBC 16.43 H (4.0-11.0) K/uL RBC 4.59 (4.50-5.90) M/uL Hgb 13.8 (13.0-17.0) g/dL Hct 40.9 (38.0-50.0) % MCV 89.1 (80.0-98.0) fL MCH 30.1 (27.0-32.0) pg MCHC 33.7 (31.0-37.0) g/dL RDW Std Deviation 40.9 (28.0-62.0) fl RDW Coeff of Kimberly 13 (11.0-15.0) % Plt Count 368 (150-400) K/uL MPV 9.50 (7.40-12.00) fL Neut % (Auto) 88.5 H (48.0-80.0) % Lymph % (Auto) 5.5 L (16.0-40.0) % [place] % (Auto) 5.9 (0.0-15.0) % Eos % (Auto) 0.0 (0.0-7.0) % Baso % (Auto) 0.1 (0.0-1.5) % Neut # (Auto) 14.5 H (1.4-5.7) K/uL Lymph # (Auto) 0.9 (0.6-2.4) K/uL [place] # (Auto) 1.0 H (0.0-0.8) K/uL Eos # (Auto) 0.0 (0.0-0.7) K/uL Baso # (Auto) 0.0 (0.0-0.1) K/uL Nucleated RBC % 0.0 /100WBC Nucleated RBCs # 0 K/uL Lactate 2.1 H* (0.20-2.00) mmol/L Sodium 133 L (136-148) mmol/L Potassium 2.9 L (3.5-5.1) mmol/L Chloride 94 L (98-107) mmol/L Carbon Dioxide 31.4 (21.0-32.0) mmol/L BUN 19 H (7.0-18.0) mg/dL Creatinine 1.1 (0.8-1.3) mg/dL Est Cr Clr Drug Dosing 39.14 mL/min Estimated GFR (MDRD) > 60.0 ml/min Glucose 168 H (74-106) mg/dL Calcium 8.6 (8.5-10.1) mg/dL Total Bilirubin 2.1 H (0.2-1.0) mg/dL AST 21 (15-37) IU/L ALT 18 (14-63) IU/L Alkaline Phosphatase 85 (46-116) U/L Total Protein 7.0 (6.4-8.2) g/dL Albumin 2.8 L (3.4-5.0) g/dL Globulin 4.2 H (2.6-4.0) g/dL Albumin/Globulin Ratio 0.7 L (0.9-1.6) Result Diagrams: 06/03/20 08:50 06/03/20 08:50 Sepsis Event Note - Evaluation Sepsis Screening Result: No Definite Risk - Focused Exam Vital Signs: Vital Signs Temp Pulse Resp BP Pulse Ox 06/03/20 11:00 81 142/80 H 93 L 06/03/20 10:07 76 18 139/82 93 L 06/03/20 09:37 83 18 136/82 93 L 06/03/20 08:49 99.9 F 84 16 128/70 94 L Orders Last 24hrs: Active Orders 24 hr Category Date Time Status Patient Status [ADT] Routine ADT 06/03/20 10:21 Active EKG Documentation Completion [RC] STAT Care 06/03/20 08:49 Active CULTURE BLOOD [BC] Stat Lab 06/03/20 08:50 Received CULTURE BLOOD [BC] Stat Lab 06/03/20 09:10 Received INFLUENZA A+B AG SCREEN [RM] Stat Lab 06/03/20 08:48 Ordered UA W/KALLIE RFLX IF INDICATED [URIN] Stat Lab 06/03/20 08:49 Ordered Azithromycin [Zithromax] 500 mg Med 06/03/20 10:15 Active Sodium Chloride 0.9% [Normal Saline (AdvBag)] 250 ml IV ONETIME Blood Culture x2 Reflex Set [OM.PC] Stat Oth 06/03/20 08:49 Ordered Isolation [COMM] Routine Oth 06/03/20 08:49 Active Medication Orders Azithromycin 500 mg/ Sodium (Chloride) 250 mls @ 250 mls/hr IV ONETIME AURELIA Last Admin: 06/03/20 10:37 Dose: 250 mls/hr Documented by: [id number]
[2020-06-03] MEDS ORDERED: Sodium Chloride 0.9% 1,000 ML IV SCH (12:45)
[2020-06-03] MEDS ORDERED: Potassium Chloride 10% 20 MEQ/15 ML Soln 15 ML UD Cup PO ONE (14:54)
[2020-06-03] MEDS ORDERED: Potassium Chloride 10% 20 MEQ/15 ML Soln 30 ML UD Cup ONE (15:36)
== END 2020-06-03 15:40 ==
LOC: MW.ED 08:38
DX: J18.9 Pneumonia, unspecified organism (principal); I10 Essential (primary) hypertension; Z88.8 Allergy status to other drugs, medicaments and biological substances; Z79.899 Other long term (current) drug therapy; Z20.828 Contact with and (suspected) exposure to other viral communicable diseases
CPT/HCPCS: 36415; 71045; 80053; 83605; 85025; 87040; 87804; 93005; 96365; 96367; 99285; A9270; J0456; J0696; J7030; J7050; U0002; 93010; 99284

== ENCOUNTER 2025-01-27 18:47 | Emergency (ER) | payer MEDICARE, MEDICAID ==
[2025-01-27 19:37] LABS: BASOPHILS ABSOLUTE AUTO 0.03 K/uL (0.00-0.20); BASOPHILS PERCENT AUTO 0.4 % (0.0-1.0); EOSINOPHILS ABSOLUTE AUTO 0.36 K/uL (0.00-0.45); EOSINOPHILS PERCENT AUTO 4.2 % (0.0-6.0); IMMATURE GRAN ABSOLUTE AUTO 0.02 K/uL (0.00-0.05); IMMATURE GRAN PERCENT AUTO 0.2 % (0.0-0.4); LYMPHOCYTES ABSOLUTE AUTO 2.22 K/uL (1.00-4.80); LYMPHOCYTES PERCENT AUTO 26.2 % (24.0-44.0); MEAN PLATELET VOLUME 8.9 fL (9.4-12.4); MONOCYTES ABSOLUTE AUTO 0.48 K/uL (0.00-0.80); MONOCYTES PERCENT AUTO 5.7 % (0.0-8.0); NEUTROPHILS ABSOLUTE AUTO 5.37 K/uL (1.80-7.70); NEUTROPHILS PERCENT AUTO 63.3 % (41.0-71.0); NRBC ABSOLUTE 0.00 K/uL (0.00-0.02); NRBC PERCENT 0.0 /100WBC (0.0-0.2); PLATELET COUNT,PLT 241 K/uL (150-400); RED BLOOD CELL COUNT 4.37 M/uL (4.52-5.90); WHITE BLOOD CELL COUNT,WBC 8.48 K/uL (3.9-11.3)
[2025-01-27 20:04] LABS: A/G RATIO 1.2 (0.9-1.6); ALANINE AMINOTRANSFERASE,ALT 21 IU/L (14-63); ASPARTATE AMNIOTRANSFERASE,AST 21 IU/L (15-37); BILIRUBIN TOTAL 0.8 mg/dL (0.2-1.0); BLOOD UREA NITROGEN,BUN 19 mg/dL (7.0-18.0); CARBON DIOXIDE,CO2 28.1 mmol/L (21.0-32.0); CHLORIDE,CL 98 mmol/L (98-107); CREATININE 1.0 mg/dL (0.8-1.3); GLUCOSE RANDOM 133 mg/dL (74-106); POTASSIUM,K 3.7 mmol/L (3.5-5.1); PROTEIN TOTAL,TP 6.3 g/dL (6.4-8.2); SODIUM,NA 134 mmol/L (136-148)
[2025-01-27 20:05] LABS: ESTIMATED GFR 75 mL/min (>60)
== END 2025-01-27 20:57 | disposition home or self-care (01) ==
LOC: MW.ED 18:47
DX: S00.03XA Contusion of scalp, initial encounter (principal); I10 Essential (primary) hypertension; Z75.3 Unavailability and inaccessibility of health-care facilities; Z88.8 Allergy status to other drugs, medicaments and biological substances; Z79.899 Other long term (current) drug therapy; W01.198A Fall on same level from slipping, tripping and stumbling with subsequent striking against other object, initial encounter; Y93.89 Activity, other specified
CPT/HCPCS: 36415; 70450; 72125; 80053; 83690; 83735; 84484; 85025; 99284; J7030; 99283

== ENCOUNTER 2025-03-10 05:51 | Inpatient (IN) | payer MEDICARE, MEDICAID ==
[2025-03-10 07:19] LABS: BASOPHILS ABSOLUTE AUTO 0.05 K/uL (0.00-0.20); BASOPHILS PERCENT AUTO 0.2 % (0.0-1.0); EOSINOPHILS ABSOLUTE AUTO 0.01 K/uL (0.00-0.45); EOSINOPHILS PERCENT AUTO 0.0 % (0.0-6.0); IMMATURE GRAN ABSOLUTE AUTO 0.14 K/uL (0.00-0.05); IMMATURE GRAN PERCENT AUTO 0.5 % (0.0-0.4); LYMPHOCYTES ABSOLUTE AUTO 0.54 K/uL (1.00-4.80); LYMPHOCYTES PERCENT AUTO 2.0 % (24.0-44.0); MEAN PLATELET VOLUME 8.6 fL (9.4-12.4); MONOCYTES ABSOLUTE AUTO 0.75 K/uL (0.00-0.80); MONOCYTES PERCENT AUTO 2.8 % (0.0-8.0); NEUTROPHILS ABSOLUTE AUTO 25.31 K/uL (1.80-7.70); NEUTROPHILS PERCENT AUTO 94.5 % (41.0-71.0); NRBC ABSOLUTE 0.00 K/uL (0.00-0.02); NRBC PERCENT 0.0 /100WBC (0.0-0.2); PLATELET COUNT,PLT 367 K/uL (150-400); RED BLOOD CELL COUNT 4.09 M/uL (4.52-5.90); WHITE BLOOD CELL COUNT,WBC 26.80 K/uL (3.9-11.3)
[2025-03-10 07:41] LABS: BLOOD UREA NITROGEN,BUN 19 mg/dL (7.0-18.0); CARBON DIOXIDE,CO2 28.4 mmol/L (21.0-32.0); CHLORIDE,CL 101 mmol/L (98-107); CREATININE 1.0 mg/dL (0.8-1.3); GLUCOSE RANDOM 94 mg/dL (74-106); POTASSIUM,K 3.1 mmol/L (3.5-5.1); SODIUM,NA 140 mmol/L (136-148)
[2025-03-10 07:45] LABS: ESTIMATED GFR 75 mL/min (>60)
[2025-03-10] MEDS: Magnesium Sulfate 2 GM/50 mL 2 GM in Premix Bag 1 BAG IV ONE ×2 (08:08→12:09)
[2025-03-10] MEDS: Potassium Chloride 20 MEQ Tab.ER PO ONE ×2 (08:09→12:21)
[2025-03-10 09:21] LABS: APPEARANCE,URINE CLEAR; GLUCOSE,URINE NEGATIVE (NEGATIVE); OCCULT BLOOD,URINE TRACE-INTACT (NEGATIVE)
[2025-03-10 09:52] LABS: EPITHELIAL CELLS,URINE RARE (NONE-FEW)
[2025-03-10] MEDS ORDERED: Sodium Chloride 0.9% 10 ML Syringe FLUSH PRN (11:48)
[2025-03-10] MEDS ORDERED: Sodium Chloride 0.9% 2.5 ML Syringe FLUSH PRN (11:48)
[2025-03-10] MEDS ORDERED: Ondansetron 4 MG/2 ML SDV IVPUSH PRN (12:00)
[2025-03-10] MEDS: Heparin Sodium 5,000 Units/ML Vial SUBCUT SCH (12:21)
[2025-03-10 12:38] LABS: LACTIC ACID 3.5 mmol/L (0.4-2.0)
[2025-03-11 06:28] LABS: BASOPHILS ABSOLUTE AUTO 0.07 K/uL (0.00-0.20); BASOPHILS PERCENT AUTO 0.3 % (0.0-1.0); EOSINOPHILS ABSOLUTE AUTO 0.17 K/uL (0.00-0.45); EOSINOPHILS PERCENT AUTO 0.8 % (0.0-6.0); IMMATURE GRAN ABSOLUTE AUTO 0.08 K/uL (0.00-0.05); IMMATURE GRAN PERCENT AUTO 0.4 % (0.0-0.4); LYMPHOCYTES ABSOLUTE AUTO 1.60 K/uL (1.00-4.80); LYMPHOCYTES PERCENT AUTO 7.8 % (24.0-44.0); MEAN PLATELET VOLUME 9.1 fL (9.4-12.4); MONOCYTES ABSOLUTE AUTO 0.72 K/uL (0.00-0.80); MONOCYTES PERCENT AUTO 3.5 % (0.0-8.0); NEUTROPHILS ABSOLUTE AUTO 17.80 K/uL (1.80-7.70); NEUTROPHILS PERCENT AUTO 87.2 % (41.0-71.0); NRBC ABSOLUTE 0.00 K/uL (0.00-0.02); NRBC PERCENT 0.0 /100WBC (0.0-0.2); PLATELET COUNT,PLT 324 K/uL (150-400); RED BLOOD CELL COUNT 3.69 M/uL (4.52-5.90); WHITE BLOOD CELL COUNT,WBC 20.44 K/uL (3.9-11.3)
[2025-03-11 06:42] LABS: BLOOD UREA NITROGEN,BUN 18.0 mg/dL (7.0-18.0); CARBON DIOXIDE,CO2 29.6 mmol/L (21.0-32.0); CHLORIDE,CL 105.0 mmol/L (98-107); CREATININE 1.0 mg/dL (0.8-1.3); EST CRCL DRUG DOSING (CG) 46.87 mL/min; GLUCOSE RANDOM 99.0 mg/dL (74-106); POTASSIUM,K 3.7 mmol/L (3.5-5.1); SODIUM,NA 140.0 mmol/L (136-148)
[2025-03-11 06:43] LABS: ESTIMATED GFR 75.0 mL/min (>60)
[2025-03-12 07:35] LABS: BASOPHILS ABSOLUTE AUTO 0.06 K/uL (0.00-0.20); BASOPHILS PERCENT AUTO 0.5 % (0.0-1.0); EOSINOPHILS ABSOLUTE AUTO 0.22 K/uL (0.00-0.45); EOSINOPHILS PERCENT AUTO 1.9 % (0.0-6.0); IMMATURE GRAN ABSOLUTE AUTO 0.04 K/uL (0.00-0.05); IMMATURE GRAN PERCENT AUTO 0.3 % (0.0-0.4); LYMPHOCYTES ABSOLUTE AUTO 1.74 K/uL (1.00-4.80); LYMPHOCYTES PERCENT AUTO 14.9 % (24.0-44.0); MEAN PLATELET VOLUME 9.0 fL (9.4-12.4); MONOCYTES ABSOLUTE AUTO 0.46 K/uL (0.00-0.80); MONOCYTES PERCENT AUTO 3.9 % (0.0-8.0); NEUTROPHILS ABSOLUTE AUTO 9.18 K/uL (1.80-7.70); NEUTROPHILS PERCENT AUTO 78.5 % (41.0-71.0); NRBC ABSOLUTE 0.00 K/uL (0.00-0.02); NRBC PERCENT 0.0 /100WBC (0.0-0.2); PLATELET COUNT,PLT 305 K/uL (150-400); RED BLOOD CELL COUNT 3.62 M/uL (4.52-5.90); WHITE BLOOD CELL COUNT,WBC 11.70 K/uL (3.9-11.3)
[2025-03-12 07:54] LABS: BLOOD UREA NITROGEN,BUN 15.0 mg/dL (7.0-18.0); CARBON DIOXIDE,CO2 27.1 mmol/L (21.0-32.0); CHLORIDE,CL 105.0 mmol/L (98-107); CREATININE 0.9 mg/dL (0.8-1.3); EST CRCL DRUG DOSING (CG) 52.07 mL/min; GLUCOSE RANDOM 89.0 mg/dL (74-106); POTASSIUM,K 3.7 mmol/L (3.5-5.1); SODIUM,NA 140.0 mmol/L (136-148)
[2025-03-12 07:55] LABS: ESTIMATED GFR 85.0 mL/min (>60)
[2025-03-12] MEDS: Amoxicillin/Clavulanate K 875-125 MG Tab PO ONE (10:54)
== END 2025-03-12 11:30 | DRG 871 ==
LOC: MW.ED 05:51 → MW.MS 11:29
PROVIDERS: ADMIT Internal Medicine; ATTEND Internal Medicine
DX: J18.9 Pneumonia, unspecified organism (principal); A41.9 Sepsis, unspecified organism; J69.0 Pneumonitis due to inhalation of food and vomit; J96.01 Acute respiratory failure with hypoxia; I10 Essential (primary) hypertension; F41.9 Anxiety disorder, unspecified; E86.0 Dehydration; E87.6 Hypokalemia; E83.42 Hypomagnesemia; Z88.8 Allergy status to other drugs, medicaments and biological substances; Z79.899 Other long term (current) drug therapy; Z87.891 Personal history of nicotine dependence
CPT/HCPCS: 36415; 71045; 74019; 80048; 81001; 83605; 83735; 85025; 87040 ×2; 87428; 87651; 96365; 96367; 99285; A9270 ×2; J0456; J2543; J3475; J7030 ×2; J7050; 99222; 99232; 99238; 99284; J1644